=== PATIENT | female | born 1965 | race Two or more races ===

== ENCOUNTER 2019-09-09 13:42 | Inpatient (IN) | payer MEDICAID, OTHER ==
[~2019-09-09] VITALS: Ht 160 cm; Wt 113.3 kg
[2019-09-09 14:26] LABS: Urine Bacteria FEW /hpf (None Seen); Urine Blood Negative /uL (Negative); Urine Hyaline Cast FEW /lpf (0 - 2); Urine Mucus FEW (None Seen); Urine Specific Gravity 1.027 (1.001-1.035); Urine WBC 15 /hpf (0 - 5)
[2019-09-09 14:35] LABS: Basophils # (auto) 0 10 ^3/uL (0-0.2); Basophils % (auto) 0.4 % (0.0-2.0); Eosinophils # (auto) 0.1 10 ^3/uL (0-0.8); Hemoglobin 15.4 g/dL (12.2-16.2); Lymphocytes # (auto) 0.8 10 ^3/uL (0.4-5.4); Lymphocytes % (auto) 9.7 % (10.0-50.0); Mean Corpuscular Hemoglobin 31.2 pg (28.0-32.0); Mean Corpuscular Hgb Conc. 32.8 g/dL (32.0-36.0); Mean Corpuscular Volume 95.2 fL (80.0-100.0); Monocytes # (auto) 0.4 10 ^3/uL (0-1.3); Monocytes % (auto) 4.8 % (0.0-12.0); Neutrophils % (auto) 84.1 % (37.0-80.0); Nucleated Red Blood Cells % 0.1 %; Platelet Count (auto) 199 10^3/uL (140-450); Red Blood Cells 4.94 10^6/uL (4.0-5.20); Red Cell Distribution Width 15.1 % (11.8-14.3); White Blood Cell 8.4 10^3/uL (4.4-10.8)
[2019-09-09 14:51] LABS: INR 1.07 (0.9-1.15); Partial Thromboplastin Time 25.1 sec (23.64-32.05)
[2019-09-09 14:54] LABS: Amylase 29 U/L (25-115); Lipase 111 U/L (73-393)
[2019-09-09 14:56] LABS: Albumin 3.6 g/dL (3.4-5.0); Anion Gap 8 (5-15); Blood Urea Nitrogen 13 mg/dL (7-18); Calcium 8.5 mg/dL (8.5-10.1); Carbon Dioxide 25 mmol/L (21-32); Chloride 104 mmol/L (98-107); Glucose 176 mg/dL (74-106); Potassium 4.1 mmol/L (3.5-5.1); Sodium 137 mmol/L (136-145)
[2019-09-09 15:03] LABS: Alanine Aminotransferase 261 U/L (13-56); Alkaline Phosphatase 143 U/L (45-117); Aspartate Aminotransferase 386 U/L (15-37); Bilirubin, Total 1.2 mg/dL (0.2-1.0); GFR African American 94 mL/min; GFR Non-African American 78 mL/min; Total Protein 8.4 g/dL (6.4-8.2)
[2019-09-09] MEDS ORDERED: SODIUM CHLORIDE 0.9% 1,000 ML IV ONE (16:00)
[2019-09-09] MEDS ORDERED: cefTRIAXone 1GM/50ML D5W 50 ML IV ONE (16:00)
[2019-09-09] MEDS ORDERED: ALUM & MAG HYDROX-SIMETH LIQ(MAALOX) 30 ML PO PRN (20:30)
[2019-09-09] MEDS ORDERED: DOCUSATE SOD 100 MG CAP PO PRN (20:30)
[2019-09-09] MEDS ORDERED: NITROGLYCERIN 0.4 MG SL TAB SL PRN ×2 (20:30)
[2019-09-09] MEDS ORDERED: MORPHINE SULF INJ 2 MG/ML SYRINGE 1ML IV PRN ×2 (20:30)
[2019-09-09] MEDS: MORPHINE SULF INJ 2 MG/ML SYRINGE 1ML IV PRN (21:07)
[2019-09-09] MEDS: ONDANSETRON HCL 4 MG/2 ML VIAL IV PRN (21:07)
[2019-09-09 21:29] LABS: Alcohol, Urine < 3.0 mg/dL (0-10); Amphetamine Screen, Urine NEGATIVE (NEGATIVE); Barbiturate Scree,Urine NEGATIVE (NEGATIVE); Benzodiazephine Screen, Urine NEGATIVE (NEGATIVE); Cannabinoid Screen, Urine NEGATIVE (NEGATIVE); Cocaine Screen, Urine NEGATIVE (NEGATIVE); Opiate Scree,Urine NEGATIVE (NEGATIVE); Phencyclidine Screen, Urine NEGATIVE (NEGATIVE)
[2019-09-09 22:00] VITALS: BP 192/85
--- NOTE | 2019-09-09 22:00 | NUR ---
Telemetry admit from [facility] admitted to Telemetry unit after SBAR received. Patient oriented to Ruby Pollock RN primary RN, unit, room, bed, and unit policies regarding patient care and visiting hours. Patient now on continuous telemetry monitoring, tele box # [id number] and telemetry reading on arrival to unit is SR. Patient placed on bedside oxygen at 2 Lpm/NC, weighed by bedscale and encouraged to call if they need something. Instructed to be NPO. All questions and concerns addressed, patient verbalized understanding, will continue to monitor Note: []
[2019-09-09 22:34] LABS: Cholesterol 152 mg/dL (< 200)
[2019-09-09 22:37] LABS: HDL Cholesterol 35 mg/dL (40-59); LDL Cholesterol 99 mg/dL (< 100); Triglycerides 85 mg/dL (< 150)
[2019-09-09] MEDS: SODIUM CHLORIDE 0.9% 1,000 ML IV SCH (22:43)
[2019-09-09] MEDS: metroNIDAZOLE 500MG/100ML 100 ML IV SCH (22:43)
[2019-09-09 23:45] VITALS: BP 142/85
[2019-09-09 23:53] VITALS: BP 142/85
[2019-09-10] VITALS (7 sets, daily range): BP systolic 128–155; BP diastolic 62–80
--- NOTE | 2019-09-10 02:40 | NUR ---
ROUNDING Patient sleeping at this time, respirations even and unlabored, will continue to monitor
[2019-09-10] MEDS ORDERED: DEXTROSE (50%) 50ML SYRG IV PRN (03:30)
[2019-09-10 05:39] LABS: Basophils # (auto) 0 10 ^3/uL (0-0.2); Basophils % (auto) 0.1 % (0.0-2.0); Eosinophils # (auto) 0 10 ^3/uL (0-0.8); Hematocrit 47.5 % (36.0-46.0); Hemoglobin 15.3 g/dL (12.2-16.2); Lymphocytes # (auto) 0.4 10 ^3/uL (0.4-5.4); Lymphocytes % (auto) 2.7 % (10.0-50.0); Mean Corpuscular Hemoglobin 30.8 pg (28.0-32.0); Mean Corpuscular Hgb Conc. 32.3 g/dL (32.0-36.0); Mean Corpuscular Volume 95.2 fL (80.0-100.0); Monocytes # (auto) 0.6 10 ^3/uL (0-1.3); Monocytes % (auto) 3.8 % (0.0-12.0); Neutrophils # (auto) 14.9 10 ^3/uL (1.6-8.6); Neutrophils % (auto) 93.4 % (37.0-80.0); Platelet Count (auto) 184 10^3/uL (140-450); Red Blood Cells 4.99 10^6/uL (4.0-5.20); Red Cell Distribution Width 15.4 % (11.8-14.3); White Blood Cell 15.9 10^3/uL (4.4-10.8)
[2019-09-10 05:57] LABS: Albumin 3.4 g/dL (3.4-5.0); Magnesium 2.2 mg/dL (1.6-2.6); Potassium 4.5 mmol/L (3.5-5.1)
[2019-09-10 05:58] LABS: INR 1.21 (0.9-1.15); Partial Thromboplastin Time 27.6 sec (23.64-32.05)
[2019-09-10 06:03] LABS: BUN/Creatinine Ratio 11.2; Bilirubin, Total 3.8 mg/dL (0.2-1.0); Phosphorus 4.3 mg/dL (2.5-4.90)
[2019-09-10] MEDS: ACCU-CHEK COMFORT CURVE STRIP VI SCH ×4 (06:27→21:50)
[2019-09-10] MEDS: InsuLIN REG 1unit/0.01ml Soln (100units/ml) SC SCH ×4 (06:27→21:50)
[2019-09-10] MEDS: metroNIDAZOLE 500MG/100ML 100 ML IV SCH ×3 (06:28→21:06)
[2019-09-10] MEDS: SODIUM CHLORIDE 0.9% 1,000 ML IV SCH ×2 (06:31→18:36)
--- NOTE | 2019-09-10 07:30 | NUR ---
OPENING NOTE Assumed responsibility of patient at 0700. Patient is Indonesian speaking only, alert and oriented x 4 and able to make needs known. Respiratory sounds clear, unlabored and equal bilaterally. Patient verbalized that she is not having any pain at this time. Bed locked in lowest position, HOB elevated at least 30 degrees and call light within reach. Patient is on NPO status. Will continue to monitor.
[2019-09-10] MEDS: LISINOPRIL 10 MG TAB PO SCH (09:47)
[2019-09-10] MEDS: CEFTRIAXONE SODIUM 2 GM in D5W 5% 50 ML IV SCH (09:58)
[2019-09-10] MEDS ORDERED: ENOXAPARIN SOD 40 MG/0.4 ML SYRINGE SC SCH (10:00)
[2019-09-10] MEDS ORDERED: ASPirin 81 mg TAB PO SCH (10:00)
[2019-09-10] MEDS ORDERED: LORazepam 2MG/ML-1ML VIAL IV ONE (10:00)
--- NOTE | 2019-09-10 10:05 | NUR ---
PATIENT OUT TO MRI PROCEDURE. WILL ASSESS WITHIN 1 HOUR OF RETURN.
--- NOTE | 2019-09-10 10:30 | NUR ---
Patient returned from MRI with no changes in LOC.
--- NOTE | 2019-09-10 19:10 | NUR ---
OPENING SHIFT NOTE: ASSUMED CARE OF PATIENT. PATIENT IS ETHIOPIAN SPEAKING ONLY, ALERT AND ORIENTED X 4. NO S/S OF SOB OR DISTRESS, PATIENT COMPLAINS OF PAIN IN ABDOMEN, WILL MEDICATE FOR PAIN. BED IS IN LOWEST LOCKED POSITION WITH TWO SIDE RAILS RAISED AND CALL LIGHT WITHIN REACH. INSTRUCTED ON POC WITH ASSISTANCE OF SUPPORT MANAGER, ENCOURAGED TO USE CALL LIGHT FOR ASSISTANCE, ALL QUESTIONS AND CONCERNS ADDRESSED, PATIENT VERBALIZED UNDERSTANDING. WILL CONTINUE TO MONITOR Q1 HR AND PRN.
[2019-09-10] MEDS: MORPHINE SULF INJ 2 MG/ML SYRINGE 1ML IV PRN (21:06)
[2019-09-10] MEDS ORDERED: ATORVASTATIN 20 MG TAB PO SCH (22:00)
--- NOTE | 2019-09-10 22:00 | NUR ---
IV DISCONTINUED/INSERTED: RIGHT WRIST 20 G IV REMOVED, CATHETER TIP INTACT AND PRESSURE DRESSING APPLIED. NEW RIGHT FOREARM 22 G IV INSERTED USING CLEAN TECHNIQUE. PATIENT TOLERATED REMOVAL AND INSERTION OF IV'S WELL.
[2019-09-11] MEDS: MORPHINE SULF INJ 2 MG/ML SYRINGE 1ML IV PRN (02:19)
[2019-09-11] MEDS: SODIUM CHLORIDE 0.9% 1,000 ML IV SCH ×3 (02:39→21:41)
[2019-09-11 05:43] VITALS: BP 140/85
[2019-09-11] MEDS: metroNIDAZOLE 500MG/100ML 100 ML IV SCH ×3 (05:51→21:41)
[2019-09-11] MEDS: InsuLIN REG 1unit/0.01ml Soln (100units/ml) SC SCH ×4 (06:00→21:42)
[2019-09-11] MEDS: ACCU-CHEK COMFORT CURVE STRIP VI SCH ×4 (06:00→21:41)
--- NOTE | 2019-09-11 07:30 | NUR ---
RECEIVED REPORT FROM NIGHT NURSE. PATIENT RESTING IN BED, NO DISTRESS NOTED. WILL CONTINUE TO MONITOR.
[2019-09-11 08:22] LABS: Basophils # (auto) 0 10 ^3/uL (0-0.2); Basophils % (auto) 0.1 % (0.0-2.0); Eosinophils # (auto) 0.1 10 ^3/uL (0-0.8); Eosinophils % (auto) 0.9 % (0.0-7.0); Hematocrit 45.7 % (36.0-46.0); Hemoglobin 14.8 g/dL (12.2-16.2); Lymphocytes # (auto) 0.7 10 ^3/uL (0.4-5.4); Lymphocytes % (auto) 8.3 % (10.0-50.0); Mean Corpuscular Hemoglobin 31.2 pg (28.0-32.0); Mean Corpuscular Hgb Conc. 32.3 g/dL (32.0-36.0); Mean Corpuscular Volume 96.5 fL (80.0-100.0); Monocytes # (auto) 0.5 10 ^3/uL (0-1.3); Monocytes % (auto) 6.7 % (0.0-12.0); Neutrophils # (auto) 6.7 10 ^3/uL (1.6-8.6); Platelet Count (auto) 150 10^3/uL (140-450); Red Blood Cells 4.74 10^6/uL (4.0-5.20); Red Cell Distribution Width 15.3 % (11.8-14.3)
[2019-09-11 08:36] LABS: Albumin 2.9 g/dL (3.4-5.0); BUN/Creatinine Ratio 13.6
[2019-09-11 08:39] LABS: Bilirubin, Total 3.7 mg/dL (0.2-1.0); Total Protein 7.7 g/dL (6.4-8.2)
[2019-09-11 08:57] VITALS: BP 155/79
[2019-09-11] MEDS: CEFTRIAXONE SODIUM 2 GM in D5W 5% 50 ML IV SCH (10:02)
[2019-09-11] MEDS: LISINOPRIL 10 MG TAB PO SCH (10:02)
--- NOTE | 2019-09-11 11:30 | NUR ---
PATIENT REFUSING INSULIN ACCUCHECK 167
[2019-09-11] MEDS: HYDROcodone-ACET 5/325MG TAB PO PRN ×2 (11:33→20:25)
--- NOTE | 2019-09-11 12:24 | NUR ---
DOCTOR FUENTES AT BEDSIDE.
[2019-09-11] MEDS ORDERED: PHYTONADIONE(VitK) ORAL Susp 10mg/10ml(1mg/ml) PO ONE (12:30)
[2019-09-11 13:22] VITALS: BP 161/78
--- NOTE | 2019-09-11 17:00 | NUR ---
PATIENT REFUSING INSULIN ACCUCHECK 159
[2019-09-11 17:06] VITALS: BP 145/93
[2019-09-11 20:00] VITALS: BP 166/91
[2019-09-11 22:00] VITALS: BP 166/91
[2019-09-11] MEDS: ENALAPRILAT 1.25 MG/ML-1ML VIAL IV PRN (22:40)
[2019-09-12] MEDS: HYDROcodone-ACET 5/325MG TAB PO PRN ×2 (00:43→20:22)
[2019-09-12 05:00] VITALS: BP 163/79
[2019-09-12] MEDS: metroNIDAZOLE 500MG/100ML 100 ML IV SCH ×3 (05:34→21:36)
[2019-09-12 05:52] LABS: Basophils # (auto) 0 10 ^3/uL (0-0.2); Basophils % (auto) 0.1 % (0.0-2.0); Eosinophils # (auto) 0 10 ^3/uL (0-0.8); Hematocrit 40.2 % (36.0-46.0); Hemoglobin 12.7 g/dL (12.2-16.2); Lymphocytes # (auto) 0.9 10 ^3/uL (0.4-5.4); Lymphocytes % (auto) 5.5 % (10.0-50.0); Mean Corpuscular Hemoglobin 26.1 pg (28.0-32.0); Mean Corpuscular Hgb Conc. 31.6 g/dL (32.0-36.0); Mean Corpuscular Volume 82.5 fL (80.0-100.0); Monocytes # (auto) 1.3 10 ^3/uL (0-1.3); Monocytes % (auto) 8.2 % (0.0-12.0); Neutrophils # (auto) 13.9 10 ^3/uL (1.6-8.6); Neutrophils % (auto) 86.2 % (37.0-80.0); Nucleated Red Blood Cells % 0.1 %; Platelet Count (auto) 221 10^3/uL (140-450); Red Blood Cells 4.87 10^6/uL (4.0-5.20); White Blood Cell 16.2 10^3/uL (4.4-10.8)
[2019-09-12 06:03] LABS: INR 1.14 (0.9-1.15)
[2019-09-12] MEDS: InsuLIN REG 1unit/0.01ml Soln (100units/ml) SC SCH ×4 (07:00→21:43)
[2019-09-12] MEDS: ACCU-CHEK COMFORT CURVE STRIP VI SCH ×4 (07:00→21:36)
[2019-09-12] MEDS ORDERED: GABA300C10 PO (07:30)
[2019-09-12] MEDS ORDERED: LISI-648 PO (07:30)
[2019-09-12] MEDS ORDERED: NAP500T PO (07:30)
[2019-09-12] MEDS ORDERED: CHOL1TAB42 PO (07:30)
[2019-09-12] MEDS ORDERED: METF-370 PO (07:30)
[2019-09-12] MEDS ORDERED: IBUP600T27 PO (07:30)
--- NOTE | 2019-09-12 07:30 | NUR ---
RECEIVED REPORT FROM NIGHT NURSE. PATIENT RESTING IN BED, NO DISTRESS NOTED. WILL CONTINUE TO MONITOR.
[2019-09-12 08:34] LABS: BUN/Creatinine Ratio 15.1; Potassium 4.1 mmol/L (3.5-5.1)
[2019-09-12] MEDS: SODIUM CHLORIDE 0.9% 1,000 ML IV SCH ×2 (08:54→17:52)
--- NOTE | 2019-09-12 08:54 | NUR ---
DOCTOR FUENTES AT BEDSIDE.
[2019-09-12 09:00] VITALS: BP 162/88
[2019-09-12] MEDS: amLODIPine BESYLATE 5 MG TAB PO SCH (10:45)
[2019-09-12] MEDS: LISINOPRIL 10 MG TAB PO SCH (10:45)
[2019-09-12] MEDS: CEFTRIAXONE SODIUM 2 GM in D5W 5% 50 ML IV SCH (11:54)
[2019-09-12 13:00] VITALS: BP 191/96
[2019-09-12] MEDS: cloNIDine HCL 0.1 MG TAB PO PRN ×2 (13:15→21:38)
--- NOTE | 2019-09-12 14:01 | NUR ---
Nutrition Assessment Note please see attached link for complete assessment [employer] needs ABW 86 [id number] kcals (17-20 kcal/kgBW), Est Protein needs: 86-94 gms/day (1.0-1.1 gm/kgBW) Will continue to monitor and reassess prn. Addendum: 09/12/19 at [address] Amended: Links added.
[2019-09-12 17:00] VITALS: BP 162/88
[2019-09-12] MEDS: MORPHINE SULF INJ 2 MG/ML SYRINGE 1ML IV PRN ×2 (17:06→21:37)
[2019-09-12] MEDS: ONDANSETRON HCL 4 MG/2 ML VIAL IV PRN (20:23)
[2019-09-12 22:33] VITALS: BP 160/79
[2019-09-13] MEDS: HYDROcodone-ACET 5/325MG TAB PO PRN ×2 (00:27→23:34)
[2019-09-13] MEDS: LORazepam 0.5 MG TAB PO PRN ×2 (00:27→23:34)
[2019-09-13 05:17] VITALS: BP 133/57
[2019-09-13] MEDS: metroNIDAZOLE 500MG/100ML 100 ML IV SCH ×3 (06:06→20:59)
[2019-09-13] MEDS: ACCU-CHEK COMFORT CURVE STRIP VI SCH ×4 (06:06→21:00)
[2019-09-13] MEDS: SODIUM CHLORIDE 0.9% 1,000 ML IV SCH ×2 (06:18→14:20)
[2019-09-13] MEDS: InsuLIN REG 1unit/0.01ml Soln (100units/ml) SC SCH ×4 (06:25→21:16)
[2019-09-13 07:11] LABS: Basophils # (auto) 0 10 ^3/uL (0-0.2); Basophils % (auto) 0.4 % (0.0-2.0); Eosinophils # (auto) 0 10 ^3/uL (0-0.8); Eosinophils % (auto) 0.3 % (0.0-7.0); Hematocrit 44.4 % (36.0-46.0); Hemoglobin 14.3 g/dL (12.2-16.2); Lymphocytes # (auto) 0.6 10 ^3/uL (0.4-5.4); Mean Corpuscular Hemoglobin 30.8 pg (28.0-32.0); Mean Corpuscular Hgb Conc. 32.3 g/dL (32.0-36.0); Mean Corpuscular Volume 95.5 fL (80.0-100.0); Monocytes # (auto) 0.4 10 ^3/uL (0-1.3); Monocytes % (auto) 7.4 % (0.0-12.0); Neutrophils # (auto) 4.6 10 ^3/uL (1.6-8.6); Neutrophils % (auto) 81.9 % (37.0-80.0); Platelet Count (auto) 169 10^3/uL (140-450); Red Blood Cells 4.65 10^6/uL (4.0-5.20); Red Cell Distribution Width 15.6 % (11.8-14.3); White Blood Cell 5.6 10^3/uL (4.4-10.8)
[2019-09-13 07:34] LABS: Calcium 8.1 mg/dL (8.5-10.1); Potassium 3.8 mmol/L (3.5-5.1)
--- NOTE | 2019-09-13 08:00 | NUR ---
Morning note Patient resting in bed with even and unlabored respirations, no distress noted. Instructed patient through translation on POC, fall precautions and to call for assistance as needed. patient verbalized understanding. Fall precautions in place with call light within reach.
[2019-09-13 09:00] VITALS: BP 141/77
[2019-09-13] MEDS: amLODIPine BESYLATE 5 MG TAB PO SCH (10:39)
[2019-09-13] MEDS: LISINOPRIL 10 MG TAB PO SCH (10:40)
[2019-09-13] MEDS: CEFTRIAXONE SODIUM 2 GM in D5W 5% 50 ML IV SCH (11:15)
[2019-09-13 13:00] VITALS: BP 155/80
[2019-09-13 17:00] VITALS: BP 158/81
[2019-09-13] MEDS: MORPHINE SULF INJ 2 MG/ML SYRINGE 1ML IV PRN (17:44)
--- NOTE | 2019-09-13 18:51 | NUR ---
Closing note Patient resting in bed with even and unlabored respirations; eyes closed, no distress noted. Fall precautions in place with call light within reach.
--- NOTE | 2019-09-13 19:01 | NUR ---
Care endorsed to PARRISH David.
[2019-09-13 22:00] VITALS: BP_SYST 145; BP_SYST 162; BP_DIAS 73; BP_DIAS 84
--- NOTE | 2019-09-13 22:00 | NUR ---
PATIENT EDUCATION PATIENT EDUCATION GIVEN TO PATIENT REGARDING ERCP PRINTED IN ENGLISH. PATIENT HAS NO QUESTIONS AT THIS TIME. WILL CONTINUE TO MONITOR PATIENT.
[2019-09-14] VITALS (8 sets, daily range): BP systolic 137–166; BP diastolic 69–95
[2019-09-14] MEDS: SODIUM CHLORIDE 0.9% 1,000 ML IV SCH ×2 (00:20→10:20)
[2019-09-14] MEDS: ENALAPRILAT 1.25 MG/ML-1ML VIAL IV PRN ×2 (04:08→12:31)
[2019-09-14] MEDS: metroNIDAZOLE 500MG/100ML 100 ML IV SCH ×3 (05:40→22:46)
[2019-09-14] MEDS: ACCU-CHEK COMFORT CURVE STRIP VI SCH ×4 (06:18→22:46)
[2019-09-14] MEDS: InsuLIN REG 1unit/0.01ml Soln (100units/ml) SC SCH ×4 (06:18→22:48)
[2019-09-14 06:31] LABS: Basophils # (auto) 0 10 ^3/uL (0-0.2); Basophils % (auto) 0.5 % (0.0-2.0); Eosinophils # (auto) 0 10 ^3/uL (0-0.8); Eosinophils % (auto) 0.8 % (0.0-7.0); Hematocrit 44.4 % (36.0-46.0); Hemoglobin 14.6 g/dL (12.2-16.2); Lymphocytes # (auto) 0.9 10 ^3/uL (0.4-5.4); Lymphocytes % (auto) 13.9 % (10.0-50.0); Mean Corpuscular Hemoglobin 31.3 pg (28.0-32.0); Mean Corpuscular Hgb Conc. 32.8 g/dL (32.0-36.0); Mean Corpuscular Volume 95.3 fL (80.0-100.0); Monocytes # (auto) 0.5 10 ^3/uL (0-1.3); Monocytes % (auto) 7.7 % (0.0-12.0); Neutrophils # (auto) 4.8 10 ^3/uL (1.6-8.6); Neutrophils % (auto) 77.1 % (37.0-80.0); Nucleated Red Blood Cells % 0.1 %; Platelet Count (auto) 169 10^3/uL (140-450); Red Blood Cells 4.66 10^6/uL (4.0-5.20); Red Cell Distribution Width 16.1 % (11.8-14.3); White Blood Cell 6.2 10^3/uL (4.4-10.8)
[2019-09-14 06:45] LABS: Potassium 3.7 mmol/L (3.5-5.1)
[2019-09-14 06:51] LABS: Albumin 2.6 g/dL (3.4-5.0); BUN/Creatinine Ratio 11.1; Bilirubin, Total 5.7 mg/dL (0.2-1.0); Calcium 8.4 mg/dL (8.5-10.1); Total Protein 7.8 g/dL (6.4-8.2)
--- NOTE | 2019-09-14 09:01 | NUR ---
MORNING NOTE ASSUMED CARE OF PATIENT. PATIENT RESTING WITH EYES CLOSED, NO SIGNS OF DISTRESS, BREATHING EVEN AND NONLABORED. BED IN LOWEST POSITION, CALL LIGHT IN PLACE. Signed: 09/14/19 at 905 by Shaina ESCOBAR <Co-Signature Required> Co-Signed: 09/14/19 at 905 by Beth Naqvi RN
[2019-09-14] MEDS: CEFTRIAXONE SODIUM 2 GM in D5W 5% 50 ML IV SCH (09:14)
[2019-09-14] MEDS: LISINOPRIL 10 MG TAB PO SCH (09:17)
[2019-09-14] MEDS: amLODIPine BESYLATE 5 MG TAB PO SCH (09:18)
--- NOTE | 2019-09-14 10:12 | NUR ---
was at bedside - Dr. Stover
[2019-09-14] MEDS ORDERED: amLODIPine BESYLATE 5 MG TAB PO ONE (10:30)
[2019-09-14] MEDS: cloNIDine HCL 0.1 MG TAB PO PRN (12:26)
--- NOTE | 2019-09-14 12:27 | NUR ---
RE: Intervention patient resting in bed with eyes closed, respirations even and unlabored, snoring noted. Addendum: 09/14/19 at 1835 by Beth Naqvi RN Amended: Links added.
--- NOTE | 2019-09-14 12:32 | NUR ---
RE: ENALAPRIL MEDICATION HELD DUE TO PT NOT ON SURGICAL TERRITORY MANAGER. Signed: 09/14/19 at 1233 by Shaina ESCOBAR <Co-Signature Required> Co-Signed: 09/14/19 at 1233 by Beth Naqvi RN
--- NOTE | 2019-09-14 12:35 | NUR ---
Pagebrandyn GOODMAN to notify of elevated BP/Enalapril held Paged Dr. Stover to notify of elevated BP and that Enalapril was held due to patient not on risk adjustment specialist. Addendum: 09/14/19 at 1335 by Beth Naqvi RN Notified Dr. Stover. Order received and read back to verbalize.
[2019-09-14] MEDS ORDERED: ENALAPRILAT 1.25 MG/ML-1ML VIAL IV PRN (13:45)
--- NOTE | 2019-09-14 14:19 | NUR ---
PT TRANSFERRED TO PREOP PT TAKEN TO PREOP VIA HOSPITAL BED FOR ERCP. VS STABLE, RESPIRATIONS NORMAL AND UNLABORED. IV INTACT, SALINE FLUSHED. NO S/S OF DISTRESS Signed: 09/14/19 at 1423 by Shaina ESCOBAR <Co-Signature Required> Co-Signed: 09/14/19 at 1423 by Beth Naqvi RN
[2019-09-14] MEDS ORDERED: LIDOCAINE 1% HCL (LOCAL ANESTH.) INJ 20ML MDV ONE (14:38)
[2019-09-14] MEDS ORDERED: SUCCINYLCHOLINE CHLORIDE 20 MG/ML 10ML VIAL IV ONE (14:38)
[2019-09-14] MEDS ORDERED: IOHEXOL 300 MG/ML 100ML BOTTLE IJ ONE (14:38)
[2019-09-14] MEDS ORDERED: fentaNYL CITRATE 100 MCG/2 ML VL IV PRN (15:00)
[2019-09-14] MEDS ORDERED: ONDANSETRON HCL 4 MG/2 ML VIAL IV PRN (15:00)
[2019-09-14] MEDS ORDERED: HYDROmorphone HCL 2 MG/ML VL IV PRN (15:00)
[2019-09-14] MEDS ORDERED: ACCU-CHEK COMFORT CURVE STRIP VI ONE (15:00)
[2019-09-14] MEDS ORDERED: MORPHINE SULFATE 4 MG/ML SYR/VIAL IV PRN (15:00)
[2019-09-14] MEDS ORDERED: SODIUM CHLORIDE LOCK 10 ML ONE (15:02)
[2019-09-14] MEDS ORDERED: MIDAZOLAM HCL 1MG/1ML-2 ML VIAL ONE (15:02)
[2019-09-14] MEDS ORDERED: ONDANSETRON HCL 4 MG/2 ML VIAL ONE (15:02)
[2019-09-14] MEDS ORDERED: PROPOFOL 10 MG/ML 20 ML IV ONE (15:02)
[2019-09-14] MEDS ORDERED: fentaNYL CITRATE 100 MCG/2 ML VL ONE (15:02)
[2019-09-14] MEDS ORDERED: ROCURONIUM 10MG/ML 10ML VIAL IV ONE (15:02)
--- NOTE | 2019-09-14 15:04 | NUR ---
Nutrition Followup Note Wt 118.2 kg Pt NPO 09/13 d/t scheduled for ERCP. Pt intake prior to NPO diet order was adequate aeb pt with 92% avg po intake x 3 days per RN nutrition doc. Will monitor po intake following NPO order. Est Energy needs ABW 86 [id number] kcals (17-20 kcal/kgBW), Est Protein needs: 86-94 gms/day (1.0-1.1 gm/kgBW) Will continue to monitor and reassess prn. Labs: AST 102H, ALT 132H, ALK PHOS 259H, GLUC 138H, Ca 8.4L, Alb 2.6L BM: 2 09/12 per RN doc Skin: BS 20 low risk, full details in director of career resources doc. PES Decreased nutrient needs r.t adiposity aeb pt`s high BMI of 46.9 kgm2 Altered nutrition related lab values r/t current medical condition aeb elev creat a1c hypocalcmeia Comments 1) Continue to monitor po intake, labs, skin 2) refer to CDE on DC 3) continue current plan of care Expected Outcomes/Goals: pt will have improved labs pt will not gain any more wt F/u mod 3-5 days
--- NOTE | 2019-09-14 16:27 | NUR ---
RE: intervention patient off unit at scheduled procedure. Addendum: 09/14/19 at 1836 by Beth Naqvi RN Amended: Links added.
[2019-09-14] MEDS ORDERED: SOD CHL 0.45% 1,000 ML IV ONE (16:30)
--- NOTE | 2019-09-14 16:45 | NUR ---
PATIENT NOT IN HER ROOM, SHES ON A PROCEDURE.
--- NOTE | 2019-09-14 18:18 | NUR ---
Respiratory note: PT EXTUBATED AT THIS TIME ORDERED BY DR. GRAFF. PLACED ON 5L N/C, SPO2 92%, HR 80, RR 17. BREATH SOUNDS CLEAR/DIMINISHED THROUGHOUT, NO STRIDOR NOTED. PT IS TO GO ON BIPAP/CPAP FOR THE NOC ONCE UPSTAIRS AND READY FOR BED. WILL CONTINUE WITH CARE.
--- NOTE | 2019-09-14 18:49 | NUR ---
CLOSING NOTE PT RETURNED FROM HER PROCEDURE AT 184. PT RESTING WITH EYES CLOSED. VS STABLE WITH RESPIRATIONS NORMAL AND NON LABORED. PT IS ON 4 L NC. NO S/S OF DISTRESS. BED DOWN, CALL LIGHT IN PLACE. BED ALARM ON FOR SAFETY. Signed: 09/14/19 at 1854 by Shaina ESCOBAR <Co-Signature Required> Co-Signed: 09/14/19 at 1854 by Beth Naqvi RN
--- NOTE | 2019-09-14 19:26 | NUR ---
Care endorsed to PARRISH Barron. Patient resting in bed with even and unlabored 4 LPM NC, no distress noted. Fall precautions in place with call light within reach; bed alarm on for safety.
--- NOTE | 2019-09-14 19:30 | NUR ---
Opening Shift Note Assumed care of patient drowsy, but easily arouseable. Patient on O2 at 5 LPM nasal cannula, on continuous pulse oximeter, saturation at 90-92%. Instructed on POC and to call for assist PRN, will continue to monitor for changes Q1hr and PRN.
[2019-09-15] VITALS (7 sets, daily range): BP systolic 135–163; BP diastolic 68–86
--- NOTE | 2019-09-15 | NUR ---
Patient on BIPAP, discontinued so patient can go to the toilet and void. Patient has a steady gait and was able to void freely. Patient put back on BIPAP by RT. All needs attended to. Care continued.
--- NOTE | 2019-09-15 02:35 | NUR ---
Respiratory note: BIPAP CHECKED, NO CHANGES MADE. PT NOTED TO HAVE PERIODS OF DESATURATIONS DOWN TO 75%, GOOD WAVEFORM. PTS SATS DECREASE, THEN IMMEDIATELY INCREASE BACK TO 91-96%.
--- NOTE | 2019-09-15 04:34 | NUR ---
Respiratory note: BIPAP CHECKED. PT NOTED TO HAVE PERIODS OF DESATURATIONS, 82% LOWEST OBSERVED AT THIS TIME. INCREASED FIO2 TO 45%. PT APPEARS TO BE SLEEPING COMFORTABLY.
[2019-09-15] MEDS: metroNIDAZOLE 500MG/100ML 100 ML IV SCH ×3 (05:45→22:00)
--- NOTE | 2019-09-15 05:46 | NUR ---
Patient ambulated to the toilet, voided freely. Care continued.
[2019-09-15 06:02] LABS: Basophils # (auto) 0.1 10 ^3/uL (0-0.2); Basophils % (auto) 0.8 % (0.0-2.0); Eosinophils # (auto) 0.1 10 ^3/uL (0-0.8); Hematocrit 42.3 % (36.0-46.0); Hemoglobin 14.1 g/dL (12.2-16.2); Lymphocytes % (auto) 11.6 % (10.0-50.0); Mean Corpuscular Hemoglobin 31.2 pg (28.0-32.0); Mean Corpuscular Hgb Conc. 33.3 g/dL (32.0-36.0); Mean Corpuscular Volume 93.9 fL (80.0-100.0); Monocytes # (auto) 0.5 10 ^3/uL (0-1.3); Monocytes % (auto) 6.2 % (0.0-12.0); Neutrophils % (auto) 80.4 % (37.0-80.0); Nucleated Red Blood Cells % 0.1 %; Platelet Count (auto) 190 10^3/uL (140-450); Red Blood Cells 4.51 10^6/uL (4.0-5.20); Red Cell Distribution Width 16.1 % (11.8-14.3); White Blood Cell 8.7 10^3/uL (4.4-10.8)
[2019-09-15 06:22] LABS: Potassium 3.4 mmol/L (3.5-5.1)
[2019-09-15] MEDS: ACCU-CHEK COMFORT CURVE STRIP VI SCH ×4 (06:34→22:00)
[2019-09-15] MEDS: InsuLIN REG 1unit/0.01ml Soln (100units/ml) SC SCH ×4 (06:34→22:00)
[2019-09-15 06:35] LABS: Albumin 2.5 g/dL (3.4-5.0); BUN/Creatinine Ratio 13.5; Bilirubin, Total 3.2 mg/dL (0.2-1.0); Calcium 8.1 mg/dL (8.5-10.1); Total Protein 7.2 g/dL (6.4-8.2)
--- NOTE | 2019-09-15 07:30 | NUR ---
Opening Shift Note Assumed care of patient, awake and alert. No S/S of distress/SOB or pain. Bed is low, locked with 2x side rails up. Call light is within reach. Instructed on POC and to call for assist PRN, will continue to monitor for changes Q1hr and PRN.
[2019-09-15] MEDS: CEFTRIAXONE SODIUM 2 GM in D5W 5% 50 ML IV SCH (09:39)
[2019-09-15] MEDS: LISINOPRIL 10 MG TAB PO SCH (09:39)
[2019-09-15] MEDS: amLODIPine BESYLATE 5 MG TAB PO SCH (09:40)
[2019-09-15] MEDS ORDERED: POTASSIUM CHL 20 Meq TABLET PO ONE (10:30)
[2019-09-15] MEDS: SOD CHL 0.45% WITH 20MEQ KCL 1,000 ML IV SCH ×2 (15:06→23:50)
[2019-09-15] MEDS: HYDROcodone-ACET 5/325MG TAB PO PRN (22:07)
--- NOTE | 2019-09-15 22:10 | NUR ---
Respiratory note: I WENT IN TO PATIENT ROOM TO ASK IF PT WAS READY TO GO ON BIPAP. PATIENT WAS COMFORTABLY RESTING, NO RESP DISTRESS NOTED. HR 64, RR 16, SPO2 97%ON 4L N/C. PT IS NAURUAN SPEAKING, SHE STATED THAT SHE DID NOT WANT TO WEAR BIPAP BECAUSE IT MAKES HER FEEL UNCOMFORTABLE AND SHE IS NOT USED TO IT. RN WAS AT BEDSIDE AND AWARE.
[2019-09-16] VITALS (21 sets, daily range): BP systolic 99–200; BP diastolic 47–86
--- NOTE | 2019-09-16 01:00 | NUR ---
NEW IV SITE IN LEFT UPPER DELTOID STARTED BECAUSE PT SAID SHE "DIDNT LIKE THE OTHER ONE". 20 GAUGE WITH EXCELLENT FLASH;IV NOW INFUSING PER ORDER;PT DENIES PAIN AND STATES THAT THE NEW SITE FEELS MORE COMFORTABLE.
[2019-09-16] MEDS: metroNIDAZOLE 500MG/100ML 100 ML IV SCH ×3 (06:18→21:46)
[2019-09-16 06:29] LABS: Basophils # (auto) 0.1 10 ^3/uL (0-0.2); Basophils % (auto) 0.8 % (0.0-2.0); Eosinophils # (auto) 0.2 10 ^3/uL (0-0.8); Hematocrit 42.8 % (36.0-46.0); Hemoglobin 14.1 g/dL (12.2-16.2); Lymphocytes % (auto) 11.2 % (10.0-50.0); Mean Corpuscular Hemoglobin 31.4 pg (28.0-32.0); Mean Corpuscular Hgb Conc. 33.1 g/dL (32.0-36.0); Monocytes # (auto) 0.5 10 ^3/uL (0-1.3); Monocytes % (auto) 5.7 % (0.0-12.0); Neutrophils # (auto) 7.1 10 ^3/uL (1.6-8.6); Neutrophils % (auto) 80.3 % (37.0-80.0); Nucleated Red Blood Cells % 0.1 %; Platelet Count (auto) 202 10^3/uL (140-450); Red Cell Distribution Width 16.2 % (11.8-14.3); White Blood Cell 8.9 10^3/uL (4.4-10.8)
[2019-09-16 06:50] LABS: Albumin 2.8 g/dL (3.4-5.0); Calcium 8.6 mg/dL (8.5-10.1); Potassium 3.6 mmol/L (3.5-5.1)
[2019-09-16] MEDS: ACCU-CHEK COMFORT CURVE STRIP VI SCH ×3 (06:55→17:43)
[2019-09-16] MEDS: InsuLIN REG 1unit/0.01ml Soln (100units/ml) SC SCH ×3 (06:55→17:43)
--- NOTE | 2019-09-16 06:55 | NUR ---
PT WANTING ANOTHER IV BECAUSE SHE LIKES TO LAY ON HER LEFT SIDE AND THE LEFT DELTOID IV IS NOT ALLOWING THAT. PT DENIES ANY PAIN WITH THE IV SITE. PT'S BLOOD SUGAR WAS 131 WITH NO COVERAGE BECAUSE THE PT IS NPO.
[2019-09-16 07:06] LABS: BUN/Creatinine Ratio 12.5; Bilirubin, Total 2.4 mg/dL (0.2-1.0); Total Protein 7.9 g/dL (6.4-8.2)
[2019-09-16] MEDS: cloNIDine HCL 0.1 MG TAB PO PRN (08:24)
[2019-09-16] MEDS: amLODIPine BESYLATE 5 MG TAB PO SCH (10:00)
[2019-09-16] MEDS: LISINOPRIL 10 MG TAB PO SCH (10:00)
[2019-09-16] MEDS: CEFTRIAXONE SODIUM 2 GM in D5W 5% 50 ML IV SCH (10:32)
--- NOTE | 2019-09-16 11:16 | NUR ---
Patient off unit Patient taken down to pre-op for scheduled surgery with Dr. Garza. IV to left upper arm is patent and intact. No distress noted upon departure.
--- NOTE | 2019-09-16 12:30 | NUR ---
Unable to obtain noon vitals . Pt is downstairs in OR at this time .
[2019-09-16] MEDS: SOD CHL 0.45% WITH 20MEQ KCL 1,000 ML IV SCH (13:10)
[2019-09-16] MEDS ORDERED: ceFAZolin 1GM/50ML 50 ML IV ONE (13:16)
[2019-09-16] MEDS ORDERED: LIDOCAINE 1% (LOCAL ANESTH.) PF 5ml SDV ONE (13:16)
[2019-09-16] MEDS ORDERED: SUCCINYLCHOLINE CHLORIDE 20 MG/ML 10ML VIAL IV ONE (13:16)
[2019-09-16] MEDS ORDERED: MIDAZOLAM HCL 1MG/1ML-2 ML VIAL ONE ×2 (13:19→16:06)
[2019-09-16] MEDS ORDERED: ROCURONIUM 10MG/ML 10ML VIAL IV ONE (13:19)
[2019-09-16] MEDS ORDERED: METOCLOPRAMIDE HCL 5MG/ml INJ 2ml VIAL ONE (13:22)
[2019-09-16] MEDS ORDERED: PROPOFOL 10 MG/ML 20 ML IV ONE (13:23)
[2019-09-16] MEDS ORDERED: fentaNYL CITRATE 100 MCG/2 ML VL ONE (13:50)
[2019-09-16] MEDS ORDERED: ePHEDrine SULFATE 50 MG/ML AMP ONE (14:06)
[2019-09-16] MEDS ORDERED: STERILE WATER 10 ML ONE (14:06)
--- NOTE | 2019-09-16 14:21 | NUR ---
Nutrition Followup Note Wt 120.5 kg Pt`s s/p ERCP, NPO to for lap shar. Est Energy needs ABW 86 [id number] kcals (17-20 kcal/kgBW), Est Protein needs: 86-94 gms/day (1.0-1.1 gm/kgBW) Will continue to monitor and reassess prn. Labs: GLU 116 H, FERMÍN 2.4 L, ALB 2.8 L, CO2 33 H BM: 2 09/12 per RN doc Skin: BS 20 low risk, full details in home health care coordinator doc. PES Decreased nutrient needs r.t adiposity aeb pt`s high BMI of 46.9 kgm2 Altered nutrition related lab values r/t current medical condition aeb elev creat a1c hypocalcemia Comments: 1) Continue to monitor po intake, labs, skin. 2) refer to CDE on DC. 3) Advance diet as medically feasible. 4) continue current plan of care
--- NOTE | 2019-09-16 15:06 | NUR ---
assessment Patient not in room. Patient is down for procedure. Ill try again in the morning. Addendum: 09/16/19 at 1506 by Elly MEANS Amended: Links added.
[2019-09-16] MEDS ORDERED: ALBUMIN 25% 50 ML IV ONE (15:17)
--- NOTE | 2019-09-16 15:39 | NUR ---
Report Called ICU and gave report to PARRISH Dior. All questions answered.
--- NOTE | 2019-09-16 16:10 | NUR ---
RECEIVED FROM OR Patient received from OR. Blood started by self upon patients arrival.
[2019-09-16] MEDS ORDERED: MIDAZOLAM DRIP 50 mg/50mL 50 ML IV ONE (16:23)
[2019-09-16] MEDS ORDERED: MIDAZOLAM DRIP 50 mg/50mL 50 ML IV SCH ×2 (16:23→17:06)
[2019-09-16] MEDS ORDERED: HYDROmorphone HCL 2 MG/ML VL IV PRN (16:30)
[2019-09-16] MEDS ORDERED: ONDANSETRON HCL 4 MG/2 ML VIAL IV PRN (16:30)
[2019-09-16] MEDS ORDERED: MIDAZOLAM HCL 1MG/1ML-2 ML VIAL IV PRN ×2 (16:30→17:00)
[2019-09-16] MEDS ORDERED: ACCU-CHEK COMFORT CURVE STRIP VI ONE (16:30)
[2019-09-16] MEDS: SODIUM CHLORIDE 0.9% 1,000 ML IV SCH (16:45)
--- NOTE | 2019-09-16 16:48 | NUR ---
BEDSIDE Dr. Jolanta turcios.
--- NOTE | 2019-09-16 17:00 | NUR ---
PAGED FAMILY In need to have consent signed for picc line, family did not answer.
--- NOTE | 2019-09-16 17:05 | NUR ---
IV INSERTED IV access obtained, via clean sterile technique by inserting 22 gauge catheter at left foot. IV secured properly. No trauma to site. Patient tolerated well.
[2019-09-16] MEDS ORDERED: fentaNYL Drip 2500mCg/250mlNS 250 ML IV SCH (17:06)
--- NOTE | 2019-09-16 17:14 | NUR ---
CPAP TRIAL STOPPED
--- NOTE | 2019-09-16 17:14 | NUR ---
MD BEDSIDE Dr. Stover signing PICC LINE consent and having second MD sign.
[2019-09-16] MEDS ORDERED: PANTOPRAZOLE 40 MG/10 ML VIAL INJ IV ONE (17:15)
[2019-09-16] MEDS ORDERED: LABETALOL HCL 5 MG/ML 4ML SYRINGE IV PRN (17:15)
[2019-09-16] MEDS ORDERED: DEXTROSE (50%) 50ML SYRG IV PRN (17:15)
--- NOTE | 2019-09-16 17:15 | NUR ---
IV INSERTED IV access obtained, via clean sterile technique by inserting 22 gauge catheter at right chest. IV secured properly. No trauma to site. Patient tolerated well.
--- NOTE | 2019-09-16 17:15 | NUR ---
SEDATON STARTED Per tripp Mckeon to start patient on Versed at 10 and start fentanyl.
--- NOTE | 2019-09-16 17:28 | NUR ---
RT NOTE: SPUTUM SAMPLE SENT TO LAB.
[2019-09-16] MEDS ORDERED: fentaNYL Drip 2500mCg/250mlNS 250 ML IV ONE (17:30)
--- NOTE | 2019-09-16 18:00 | NUR ---
CELSO OUTPUT 75
--- NOTE | 2019-09-16 18:13 | NUR ---
Respiratory note: ABG DONE POST VENT SETTING CHANGES. ABG RESULTS REPORTED TO DR. KEMP, NO VENT CHANGES MADE AT THIS TIME. PT TOLERATING SETTINGS WELL, WILL CONTINUE TO MONITOR.
--- NOTE | 2019-09-16 18:15 | NUR ---
FIO2 TITRATED TO 35%, PT TOLERATING WELL.
--- NOTE | 2019-09-16 18:45 | NUR ---
PICC LINE NURSE BEDSIDE
--- NOTE | 2019-09-16 19:30 | NUR ---
Opening shift note received pt on mechanical ventilator sedated on versed and fentanyl. Pt opens eyes to name but closes right away, no movement of extremities noted. S/P CHOLEY with abdominal incisions and dressing. minimal bleeding noted to abdominal dressing, drainage circled. CELSO draining sanguinous fluid. A line to right radial, zeroed with good wave form. Bilateral mittens applied for pt safety. Fair catheter intact draining clear venus urine to gravity, free of kinks. PICC line nurse at bedside placing PICC to KRIS. Full assessment done, see interventions. All alarms on and audible.
[2019-09-16] MEDS ORDERED: LIDOCAINE 1% (LOCAL ANESTH.) PF 5ml SDV ID ONE (20:00)
--- NOTE | 2019-09-16 20:11 | NUR ---
PICC line placement Patient significant other educated on need for PICC line placement. All risks and benefits explained and all questions and concerns addressed prior to procedure. Noted past medical history and allergies with no contraindications. INR and Plt counts within acceptable range. 5 fr PICC line inserted via RIGHT BRACHIAL vein using [employer] US and Tip Location System. Sterile technique with maximum barrier precautions utilized. Blood return obtained from each of THE 3 lumens and each flushed easily with NS using proper technique. PICC secured with Stat-lock; biodisc and occlusive dressing applied. Stat portable chest x-ray obtained for PICC tip placement. *Baseline Arm Circumference 43 CM, INTERNAL LENGTH 40 COM, EXTERNAL LENGTH 0CM. PICC lot # [id number]. Note:
--- NOTE | 2019-09-16 20:37 | NUR ---
OK to use PICC line Xray completed. OK TO USE PICC LINE. PRIMARY RN NOTIFIED
[2019-09-16 21:10] LABS: Basophils # (auto) 0.1 10 ^3/uL (0-0.2); Basophils % (auto) 0.5 % (0.0-2.0); Eosinophils # (auto) 0 10 ^3/uL (0-0.8); Eosinophils % (auto) 0.1 % (0.0-7.0); Hematocrit 38.1 % (36.0-46.0); Hemoglobin 12.4 g/dL (12.2-16.2); Lymphocytes # (auto) 0.9 10 ^3/uL (0.4-5.4); Lymphocytes % (auto) 6.5 % (10.0-50.0); Mean Corpuscular Hemoglobin 30.6 pg (28.0-32.0); Mean Corpuscular Hgb Conc. 32.6 g/dL (32.0-36.0); Monocytes # (auto) 0.6 10 ^3/uL (0-1.3); Monocytes % (auto) 4.4 % (0.0-12.0); Neutrophils # (auto) 12.2 10 ^3/uL (1.6-8.6); Neutrophils % (auto) 88.5 % (37.0-80.0); Nucleated Red Blood Cells % 0.1 %; Platelet Count (auto) 213 10^3/uL (140-450); Red Blood Cells 4.05 10^6/uL (4.0-5.20); Red Cell Distribution Width 16.1 % (11.8-14.3); White Blood Cell 13.8 10^3/uL (4.4-10.8)
[2019-09-16 21:30] LABS: BUN/Creatinine Ratio 17.9; Calcium 7.9 mg/dL (8.5-10.1); Potassium 3.9 mmol/L (3.5-5.1)
[2019-09-16] MEDS: SODIUM CHLOR 0.9% PF (SALINE LOCK) 10ML VIAL/SYR IV SCH (22:00)
[2019-09-17] VITALS (24 sets, daily range): BP systolic 102–160; BP diastolic 47–92
--- NOTE | 2019-09-17 03:00 | NUR ---
Respiratory note: AT BEDSIDE DUE TO VENT ALARMING, PT SELF EXTUBATED. SPO2 NOTED AT 84%. PT BAGGED WITH 100% FIO2, SPO2 IMPROVED TO 94%, SILVER DESIGNER HINOJOSA AT BEDSIDE. PT PLACED ON EPINEPHRINE MED NEB TX FOR STRIDOR. PT TOLERATING TREATMENT WELL. PT FOLLOWING COMMANDS, NO RESPIRATORY DISTRESS NOTED. BIPAP PLACED AT BEDSIDE. WILL CONTINUE TO MONITOR.
--- NOTE | 2019-09-17 03:00 | NUR ---
Self extubation Ventilator alarming, pt had pulled ET tube out. RT at bedside bagging pt. Pt awake and follows commands but lethargic. SPO2 at 95%. Stridor auscultated. Glycemic EPI MED NEB given by RT. NORMA loza at bedside assessing pt. Sedation turned off. Will continue to monitor closely. BIPAP at bedside.
[2019-09-17] MEDS ORDERED: EPINEPHrine HCL 0.5 ML NEB ONE (03:04)
[2019-09-17] MEDS ORDERED: EPINEPHrine HCL 0.5 ML NEB NEB ONE (03:15)
--- NOTE | 2019-09-17 04:30 | NUR ---
Pt on BIPAP. VSS. Respirations even and unlabored. Pt has stridor. saturations are 98%. Pt nodded head yes to pain. Will medicate. See emar. Will continue to monitor closely
[2019-09-17] MEDS: SODIUM CHLORIDE 0.9% 1,000 ML IV SCH ×3 (06:07→22:45)
[2019-09-17] MEDS: metroNIDAZOLE 500MG/100ML 100 ML IV SCH ×3 (06:07→21:26)
[2019-09-17] MEDS: ACCU-CHEK COMFORT CURVE STRIP VI SCH ×4 (06:28→17:48)
[2019-09-17] MEDS: InsuLIN REG 1unit/0.01ml Soln (100units/ml) SC SCH ×4 (06:28→17:49)
[2019-09-17 07:29] LABS: Basophils # (auto) 0.1 10 ^3/uL (0-0.2); Basophils % (auto) 0.7 % (0.0-2.0); Eosinophils # (auto) 0 10 ^3/uL (0-0.8); Eosinophils % (auto) 0.1 % (0.0-7.0); Hematocrit 37.1 % (36.0-46.0); Hemoglobin 11.9 g/dL (12.2-16.2); Lymphocytes # (auto) 1.9 10 ^3/uL (0.4-5.4); Lymphocytes % (auto) 14.3 % (10.0-50.0); Mean Corpuscular Hemoglobin 30.2 pg (28.0-32.0); Mean Corpuscular Volume 94.6 fL (80.0-100.0); Monocytes # (auto) 0.9 10 ^3/uL (0-1.3); Monocytes % (auto) 6.4 % (0.0-12.0); Neutrophils # (auto) 10.6 10 ^3/uL (1.6-8.6); Neutrophils % (auto) 78.5 % (37.0-80.0); Nucleated Red Blood Cells % 0.2 %; Platelet Count (auto) 227 10^3/uL (140-450); Red Blood Cells 3.93 10^6/uL (4.0-5.20); Red Cell Distribution Width 15.9 % (11.8-14.3); White Blood Cell 13.5 10^3/uL (4.4-10.8)
--- NOTE | 2019-09-17 07:29 | NUR ---
PT REMOVED FROM BIPAP AND PLACED ON CA ON 10L AT 35%. SPO2 93%, HR 91, RR16, BP 105/55. NO DISTRESS NOTED. WILL CONTINUE TO MONITOR PT.
--- NOTE | 2019-09-17 07:30 | NUR ---
PLACED PT ON 4L OXYMIZER AND SAVANNAH. WELL. PARRISH ORTEGA MADE AWARE, SPO2 94%, WILL CONTINUE TO MONITOR PT
[2019-09-17 07:45] LABS: Albumin 2.3 g/dL (3.4-5.0); BUN/Creatinine Ratio 15.9; Calcium 7.6 mg/dL (8.5-10.1); Potassium 4.2 mmol/L (3.5-5.1)
[2019-09-17 07:47] LABS: Bilirubin, Total 2.6 mg/dL (0.2-1.0); Total Protein 6.4 g/dL (6.4-8.2)
--- NOTE | 2019-09-17 08:00 | NUR ---
ASSESS- PT. LYING IN BED WITH EYES CLOSED, AROUSABLE TO NAME. ALERT TO SELF AND PLACE ONLY AT THIS TIME. DENIES ANY PAIN OR DISCOMFORT. LUNGS COARSE FERMÍN. INSPIRATORY AND EXPIRATORY. ON COOL MIST MASK FIO2-40%. NO SOB. NON-PRODUCTIVE MOIST COUGH. ABD. SOFT, TENDER, LG. BOWEL SOUNDS HYPOACTIVE ALL FOUR QUADRANTS. NO N/V. PT. IS NPO. ABD. BINDER IN PLACE. MID-LINE ABD. INCISION WITH DSG. D/I. CELSO TO ABD. TO BULB SUCTION WITH SANGUINOUS DRAINAGE. F/C TO GRAVITY WITH CLEAR DK. FIDE URINE. RADIAL PULSES STRONG, PALPABLE FERMÍN. DORSALIS PEDAL PULSES STRONG, PALPABLE FERÍMN. SCD TO LT. LEG. BP CUFF TO RT. CALF. PICC KRIS TLC INTACT. A-LINE LT. RADIAL INTACT WITH GOOD WAVEFORM.
--- NOTE | 2019-09-17 09:37 | NUR ---
DR. REED Provider/Hospitalist at bedside. GAVE UPDATE ON PT. NEW ORDERS RECEIVED.
--- NOTE | 2019-09-17 10:00 | NUR ---
RT TOOK PT. OFF COOL MIST MASK AND PLACED ON OXYMIZER 4L. O2 SATS MID 90'S. LUNGS COARSE FERMÍN. NO SIGNS OF RESP. DISTRESS.
[2019-09-17] MEDS: SODIUM CHLOR 0.9% PF (SALINE LOCK) 10ML VIAL/SYR IV SCH ×2 (10:14→21:27)
[2019-09-17] MEDS: PANTOPRAZOLE 40 MG/10 ML VIAL INJ IV SCH (10:14)
--- NOTE | 2019-09-17 10:25 | NUR ---
D'C'D A-LINE LT. RADIAL PER DR. REED. APPLIED 4X4 AND FOAM TAPE. APPLIED PRESSURE FOR 2-3 MIN. UNTIL BLEEDING STOPPED.
--- NOTE | 2019-09-17 10:30 | NUR ---
IV removal IV DC'd with sterile technique, catheter fully intact. Pressure dressing applied to site. Patient tolerated procedure well. Discharged with aftercare instructions per MD. NOTE: D'C'D IV H.L. RT. UPPER CHEST.
[2019-09-17] MEDS: CEFTRIAXONE SODIUM 2 GM in D5W 5% 50 ML IV SCH (10:36)
--- NOTE | 2019-09-17 12:45 | NUR ---
DR. KEMP Provider/Hospitalist at bedside. GAVE UPDATE ON PT. INFORMED OF LOW URINE OUTPUT FOR TODAY'S SHIFT.
[2019-09-17] MEDS: HYDROmorphone HCL 2 MG/ML VL IV PRN ×2 (13:54→21:26)
--- NOTE | 2019-09-17 13:54 | NUR ---
PT. HAVING ABD. PAIN AT INCISIONAL SITE 7 ON A SCALE OF 0-10. MED. WITH DILAUDID 1MG. IVP.
--- NOTE | 2019-09-17 14:20 | NUR ---
PT. MORE COMFORTABLE NOW, NO PAIN OR DISCOMFORT. RESTING WITH EYES CLOSED.
--- NOTE | 2019-09-17 14:55 | NUR ---
PHYSICAL THERAPY FOR EVALUATION. ASSISTED PT. TO CHAIR, STEADY GAIT. TOLERATED WELL.
--- NOTE | 2019-09-17 16:30 | NUR ---
KAREN PT HERE TO PLACE PT. BACK IN BED. MODERATE ASSIST. FROM CHAIR, PIVOTED TO BED. TOLERATED WELL.
--- NOTE | 2019-09-17 17:01 | NUR ---
Assessment Patient is a 54-year-old female who is in ICU. Assessment was completed with patient sister Riya Ph:). Per Riya prior to admission patient lived home with her and functioned independently. Per Riya patient was able to care for her own ADLs. Per Riya patient does not have any medical equipment. Per Riya patient was having difficulty walking and her legs would get swollen due to her diabetes. Per Riya she brought patient to the hospital due to her legs getting to swollen and was unable to ambulate. Informed Riya plan of discharge will be determined after patient is downgraded from ICU. Riya verbalize understanding.
--- NOTE | 2019-09-17 18:11 | NUR ---
Respiratory note: ASSESSED PT FOR PRN BIPAP AT THIS TIME, PT SLEEPING AT THIS TIME, NO RESP DISTRESS NOTED. PULSE OX 96% ON 4L OXYMIZER, HR 78, RR 18
--- NOTE | 2019-09-17 19:40 | NUR ---
OPENING NOTE REPORT RECEIVED FROM KARISHMA SENIOR. PATIENT IS A/OX4 AT THIS TIME, MALAGASY SPEAKING AND ABLE TO VERBALIZE ALL NEEDS. PATIENT IS CONNECTED TO CONTINUOUS MONITOR. HEART RATE FLUCTUATING IN 70'S, SPO2 AT 95% ON 4L OXYMIZER. PHYSICAL ASSESSMENT DONE-SEE INTERVENTIONS FOR FULL DETAILS. INCISION SITE TO ABDOMEN WITH OLD DRAINAGE NOTED, NO NEW DRAINAGE. CELSO DRAIN TO RIGHT LOWER ABDOMEN. ABDOMINAL BINDER IN PLACE. VACA DRAINING DARK FIDE URINE TO GRAVITY. INCENTIVE SPIROMETER AT BEDSIDE, PATIENT ABLE TO DEMONSTRATE USE, ONLY ABLE TO REACH 500 LINE. PICC LINE TO RIGHT UPPER ARM, TRIPLE LUMEN CATH, RUNNING NS AT 100ML/HR-SEE IV SPREAD SHEET. SCD'S ON BILATERALLY. PATIENT ABLE TO ASSIST WITH REPOSITIONING. CALL LIGHT WITHIN REACH. FALL PRECAUTIONS IN PLACE.
[2019-09-18] VITALS (20 sets, daily range): BP systolic 107–180; BP diastolic 40–77
--- NOTE | 2019-09-18 | NUR ---
LOW GRADE TEMP ORAL TEMP 99.6F. COOLING MEASURES INITIATED, BLANKET REMOVED, ICE PACKS PLACED UNDER AXILLA AND ROOM TEMPERATURE DECREASED. WILL CONTINUE TO MONITOR CLOSELY
[2019-09-18] MEDS: ACCU-CHEK COMFORT CURVE STRIP VI SCH ×4 (00:01→17:45)
[2019-09-18] MEDS: InsuLIN REG 1unit/0.01ml Soln (100units/ml) SC SCH ×4 (00:02→18:05)
--- NOTE | 2019-09-18 00:13 | NUR ---
ELEVATED BP PATIENT BP 182/84, HEART RATE 96. ADMINISTERED LABETALOL ORDERED BY MD-SEE EMAR FOR DETAILS. WILL MONITOR BP CLOSELY AND REASSESS IN ONE HOUR
--- NOTE | 2019-09-18 01:13 | NUR ---
BP REASSESS BP NOW 139/56, HEART RATE 66
[2019-09-18] MEDS: HYDROmorphone HCL 2 MG/ML VL IV PRN ×5 (01:34→20:58)
[2019-09-18 04:39] LABS: Basophils # (auto) 0.1 10 ^3/uL (0-0.2); Basophils % (auto) 0.6 % (0.0-2.0); Eosinophils # (auto) 0.1 10 ^3/uL (0-0.8); Eosinophils % (auto) 0.6 % (0.0-7.0); Hematocrit 29.6 % (36.0-46.0); Hemoglobin 9.9 g/dL (12.2-16.2); Lymphocytes % (auto) 7.9 % (10.0-50.0); Mean Corpuscular Hemoglobin 32.1 pg (28.0-32.0); Mean Corpuscular Hgb Conc. 33.6 g/dL (32.0-36.0); Mean Corpuscular Volume 95.5 fL (80.0-100.0); Monocytes # (auto) 0.8 10 ^3/uL (0-1.3); Monocytes % (auto) 6.3 % (0.0-12.0); Neutrophils % (auto) 84.6 % (37.0-80.0); Nucleated Red Blood Cells % 0.1 %; Platelet Count (auto) 192 10^3/uL (140-450); Red Blood Cells 3.09 10^6/uL (4.0-5.20)
[2019-09-18 04:41] LABS: Potassium 4.3 mmol/L (3.5-5.1)
[2019-09-18 04:47] LABS: Albumin 2.3 g/dL (3.4-5.0); BUN/Creatinine Ratio 18.9; Calcium 7.5 mg/dL (8.5-10.1)
[2019-09-18 04:49] LABS: Bilirubin, Total 2.3 mg/dL (0.2-1.0); Total Protein 6.6 g/dL (6.4-8.2)
--- NOTE | 2019-09-18 05:23 | NUR ---
AM CARES PATIENT GIVEN BED BATH. CLEANSED WITH CHG WIPES, AND WARM SOAPY WATER WASH CLOTHS. PATIENT GIVEN LINEN AND GOWN CHANGE AT THIS TIME. AT THIS TIME, IT WAS NOTED THAT DRESSING TO ABDOMINAL INCISION COMING OFF. NEW DRESSING PLACED TO REINFORCE GAUZE OVER INCISION SITE. SKIN REASSESSED AT THIS TIME, NO CHANGES NOTED. PATIENT ABLE TO ASSIST WITH TURNING.
[2019-09-18] MEDS: metroNIDAZOLE 500MG/100ML 100 ML IV SCH ×3 (05:36→21:01)
[2019-09-18] MEDS: SODIUM CHLORIDE 0.9% 1,000 ML IV SCH ×2 (05:45→16:20)
--- NOTE | 2019-09-18 06:25 | NUR ---
Respiratory note: ASSESSED PT FOR PRN BIPAP. HR 70, RR 16, SPO2 97% ON 4LPM OXYMIZER. BREATH SOUNDS CLEAR/DIM T/O, NO S/S OF RESPIRATORY DISTRESS NOTED. BIPAP NOT INDICATED AT THIS TIME. WILL CONTINUE TO MONITOR.
--- NOTE | 2019-09-18 07:11 | NUR ---
CLOSING PATIENT RESTING COMFORTABLY AT THIS TIME. PATIENT SPO2 AT 98% ON 4L OXYMIZER. NO NEW DRAINAGE TO INCISION SITES ON ABDOMEN. NS INFUSING THROUGH RIGHT UPPER ARM PICC-SEE IV SPREADSHEET. WILL ENDORSE CARE TO AM SHIFT RN.
--- NOTE | 2019-09-18 07:30 | NUR ---
REPORT REPORT RECEIVED FROM NIGHT RN. BEDSIDE CHECK DONE. PT RESTING WITH EYES CLOSED AND VSS. CONTINUE TO MONITOR.
--- NOTE | 2019-09-18 08:25 | NUR ---
ASSESSMENT PT OPENS EYES TO NAME AND IS A/O X4. MOSTLY URDU SPEAKING. LUNGS CLEAR THROUGHOUT. O2 AT 4 L/M VIA OXYMIZER WITH O2 SAT OF 98%. USED ID , 10 BREATHS TO 500ML. TELE SR WITH ST ELEVATION IN LEAD II. PALPABLE PULSES TO ALL EXTREMITIES. SCD TO LEFT LEG AND BP CUFF TO THE RIGHT. MIDLINE ABD AND TRANSVERSE UPPER ABD DRESSING WITH CELSO TO THE RIGHT ABD, DRAINING SEROSANGUINOUS FLUID. VACA CATHETER DRAINING DARK FIDE URINE WITH A STRONG SMELL. SKIN INTACT OTHER THAN SURGICAL INCISIONS. TURNED FOR COMFORT. CONTINUE TO MONITOR,
--- NOTE | 2019-09-18 08:55 | NUR ---
PHYSICAL THERAPY Concepcion JONES, AT THE BEDSIDE AND ASSISTED THE PT TO GET OOB TO THE CHAIR. INSTRUCTED PT TO NOT GET UP WITHOUT ASSISTANCE, SHE EXPRESSED UNDERSTANDING. CALL LIGHT WITHIN REACH.
--- NOTE | 2019-09-18 10:20 | NUR ---
PHYSICAL THERAPISTKAREN, ASSISTED PT BACK INTO BED.
--- NOTE | 2019-09-18 10:35 | NUR ---
Nutrition Followup Note Wt 120.5 kg Pt`s awake, sitting up in recliner, resting and eating jello. Pt diet has been advanced to a Full Liquid diet this am. Pt with no distress or complaints. Through engraver hand soft metals, Pt confirmed she is diabetic, has not been educated, and eats a regular diet at home. Pt is interested in DM education and receipt of class schedule so she can attend. Pt also confirmed she has no food allergies. Will continue to closely monitor pertinent labs, PO intake and skin status prn. Will followup in 3-5 days Est Energy needs ABW 86 [id number] kcals (17-20 kcal/kgBW), Est Protein needs: 86-94 gms/day (1.0-1.1 gm/kgBW) Will continue to monitor and reassess prn. Labs: GLU 162 H, A1c 7.8 H, Ca 7.5 L, FERMÍN 2.3 L, ALB 2.3 L BM: 2 09/12 per RN doc Skin: BS 17 low risk, full details in caregiver services home doc. PES Decreased nutrient needs r.t adiposity aeb pt`s high BMI of 46.9 kgm2 Altered nutrition related lab values r/t current medical condition aeb elev creat a1c hypocalcemia Comments: 1) Continue to monitor po intake, labs, skin. 2) refer to CDE on DC. 3) Advance diet as medically feasible. 4) continue current plan of care
[2019-09-18] MEDS: CEFTRIAXONE SODIUM 2 GM in D5W 5% 50 ML IV SCH (10:38)
[2019-09-18] MEDS: PANTOPRAZOLE 40 MG/10 ML VIAL INJ IV SCH (10:38)
[2019-09-18] MEDS: SODIUM CHLOR 0.9% PF (SALINE LOCK) 10ML VIAL/SYR IV SCH ×2 (10:48→22:28)
--- NOTE | 2019-09-18 10:50 | NUR ---
PAIN PT WITH C/O PAIN TO THE ABD, 10/07. MEDICATED WITH DILAUDID 1 MG IV. PT BACK IN BED WITH BED IN LOW POSITION AND RAILS UP FOR PT SAFETY.. INSTRUCTED PT NOT TO GET OOB AND SHE EXPRESSED UNDERSTANDING.
--- NOTE | 2019-09-18 11:00 | NUR ---
PT SLEEPING AT THIS TIME. NO SIGN OF ANY RESP DISCOMFORT. WILL CONTINUE TO MONITOR.
--- NOTE | 2019-09-18 11:00 | NUR ---
REPORT GIVEN TO PARRISH MARINELLI, WHO IS ASSUMING CARE OF THIS PT.
--- NOTE | 2019-09-18 13:00 | NUR ---
PT TOLERATED FULL LIQUID DIET WELL. NO NAUSEA/ VOMITING PRESENTED. CONSUMED 60 % OF FOOD SERVED.
[2019-09-18] MEDS: METOCLOPRAMIDE HCL 10 MG TAB PO SCH ×2 (13:31→21:01)
--- NOTE | 2019-09-18 14:00 | NUR ---
PT REFUSED TO TURN AT THIS TIME. SHE SAID " I'M COMFORTABLE " RIGHT NOW . I WILL TURN LATER.
[2019-09-18] MEDS ORDERED: FUROSEMIDE 20 MG/2 ML VIAL IV ONE (14:45)
[2019-09-18] MEDS ORDERED: POTASSIUM CHL 20 Meq TABLET PO ONE (14:45)
--- NOTE | 2019-09-18 15:45 | NUR ---
PT DOWNGRADED TO TRUMAN. REPORT GIVEN TO PARRISH HAYNES.
--- NOTE | 2019-09-18 16:00 | NUR ---
PT TRANSFERRED TO TRUMAN VIA BED WITH O2 AND MONITOR ON. PT STABLE AT TIME OF TRANSFER.
--- NOTE | 2019-09-18 16:00 | NUR ---
OPEN: TRANSFER FROM ICU TO TRUMAN ROOM 264 RECEIVED REPORT FROM PARRISH MARINELLI. ASSUMED CARE OF TRUMAN PATIENT, FULL CODE STATUS. PATIENT A & O X4, CALM AND FOLLOWS COMMANDS. PATIENT MOSTLY ZAMBIAN SPEAKING. PATIENT RECEIVED IN BED, O2 AT 4L VIA OXYMIZER. VACA TO GRAVITY. SCD PLACED TO RIGHT LE. BP CUFF PLACED TO LEFT CALF. CURRENT V/S HR 68, SR, RR 20, 96% O2 SATS, BP 144/50. PAIN 7/10, ABDOMINAL PAIN. PATIENT SPLINTING AT THIS TIME. WILL GIVE PAIN MEDICINE, SEE EMAR FOR TIME GIVEN. RIGHT UPPER ARM PICC LINE, FLUSHED AND PATENT, DRESSING CDI. SKIN REMAINS INTACT. PATIENT WANTING TO LAY ON BACK AT THIS TIME. NS AT 75 ML/HR. SEE EMAR FOR TIMES OF MEDS GIVEN. CONTINUE CARE.
--- NOTE | 2019-09-18 22:51 | NUR ---
RT NOTE PT PLACED ON BIPAP B8 ON STATED SETTINGS WITH MEDIUM MASK. BIPAP IS PLUGGED TO RED OUTLET. ALARMS ARE ON AND AUDIBLE TO NURSING. LEAK TEST PASSED PRIOR TO PLACEMENT. PT APPEARS TO TOLERATE WELL. SKIN IS INTACT. CONT ORDERED. POX 98% Addendum: 09/19/19 at 0133 by Emy Alas RT Amended: Links added.
[2019-09-19] VITALS (7 sets, daily range): BP systolic 119–177; BP diastolic 43–81
--- NOTE | 2019-09-19 00:51 | NUR ---
RT NOTE ROUTINE BIPAP CHECK DONE. PT ON BIPAP B8 ON STATED SETTINGS WITH MEDIUM MASK. BIPAP IS PLUGGED TO RED OUTLET. ALARMS ARE ON AND AUDIBLE TO NURSING. PT IS ON CONTINUOUS POX PER PROTOCOL. PT APPEARS TO TOLERATE WELL. SKIN IS INTACT. CONT ORDERED. POX 99% Addendum: 09/19/19 at 0133 by Emy Alas RT Amended: Links added.
[2019-09-19] MEDS: HYDROmorphone HCL 2 MG/ML VL IV PRN ×5 (01:27→18:13)
--- NOTE | 2019-09-19 01:30 | NUR ---
RT NOTE PT WAS TAKEN OFF BIPAP AND PLACED ON 4L OXYMIZER BY PARRISH KANG PER PT REQUEST. NO SOB OR DISTRESS NOTED
[2019-09-19] MEDS: metroNIDAZOLE 500MG/100ML 100 ML IV SCH ×3 (05:03→22:08)
[2019-09-19] MEDS: SODIUM CHLORIDE 0.9% 1,000 ML IV SCH ×2 (05:03→18:32)
[2019-09-19] MEDS: METOCLOPRAMIDE HCL 10 MG TAB PO SCH ×3 (05:03→22:08)
[2019-09-19] MEDS: InsuLIN REG 1unit/0.01ml Soln (100units/ml) SC SCH ×4 (05:46→17:52)
[2019-09-19] MEDS: ACCU-CHEK COMFORT CURVE STRIP VI SCH ×4 (05:46→17:52)
[2019-09-19 05:47] LABS: Basophils # (auto) 0 10 ^3/uL (0-0.2); Basophils % (auto) 0.2 % (0.0-2.0); Eosinophils # (auto) 0.3 10 ^3/uL (0-0.8); Eosinophils % (auto) 2.5 % (0.0-7.0); Hematocrit 28.1 % (36.0-46.0); Hemoglobin 9.2 g/dL (12.2-16.2); Lymphocytes # (auto) 1.2 10 ^3/uL (0.4-5.4); Lymphocytes % (auto) 9.1 % (10.0-50.0); Mean Corpuscular Hgb Conc. 32.8 g/dL (32.0-36.0); Mean Corpuscular Volume 97.5 fL (80.0-100.0); Monocytes # (auto) 0.8 10 ^3/uL (0-1.3); Monocytes % (auto) 5.8 % (0.0-12.0); Neutrophils # (auto) 11.2 10 ^3/uL (1.6-8.6); Neutrophils % (auto) 82.4 % (37.0-80.0); Nucleated Red Blood Cells % 0.1 %; Platelet Count (auto) 184 10^3/uL (140-450); Red Blood Cells 2.88 10^6/uL (4.0-5.20); Red Cell Distribution Width 15.9 % (11.8-14.3); White Blood Cell 13.6 10^3/uL (4.4-10.8)
[2019-09-19 05:56] LABS: Calcium 7.4 mg/dL (8.5-10.1); Potassium 3.9 mmol/L (3.5-5.1)
--- NOTE | 2019-09-19 06:45 | NUR ---
Pt has remained stable this shift. Has maintained abd binder on throughout the night. CELSO drain patent although drainage clotted in tubing so CELSO tubing was milked to move clotted drainage along through the tube. Pt has needed pain medication as often as it comes due. Picc line patent, all ports flushing. No S/S of distress this shift. Will give report to AM shift.
--- NOTE | 2019-09-19 07:45 | NUR ---
OPENING SHIFT NOTE: Received report from NOC RN, Brandee. Assumed care of patient. Received patient in bed, connected to bedside monitor with alarms in place. Patient is hebrew speaking only. No s/s of distress noted, denies pain. Patient on 4L Oxymizer with Os sats 98%. Patient with right upper arm TL PICC line that all ports flush and has NS running at 75ml/hr. Fair draining dark venus urine. Abdominal binder in place with CELSO drain to RL quadrant. Bed in lowest position, rails x2 up and call light within reach. Patient is currently medsurg waiting on bed assignment. Updated on plan of care. Will continue to monitor.
--- NOTE | 2019-09-19 09:15 | NUR ---
Report given to PARRISH Salgado. Patient transferred to [address] via bed on oxygen.
--- NOTE | 2019-09-19 09:20 | NUR ---
PATIENT BROUGHT TO ROOM VIA BED FROM TRUMAN. PATIENT ORIENTED TO ROOM, CALL LIGHT PLACED BED SIDE, BED IN LOCKED AND LOWEST POSITION WITH 2X SIDE RAILS UP. NO COMPLAINTS OF PAIN AT THIS TIME. WILL CONTINUE TO MONITOR Q1H AND PRN. PATIENT VS: 158/71, 98.8, 71, 98%, 19.
[2019-09-19] MEDS: PANTOPRAZOLE 40 MG/10 ML VIAL INJ IV SCH (09:53)
[2019-09-19] MEDS: SODIUM CHLOR 0.9% PF (SALINE LOCK) 10ML VIAL/SYR IV SCH ×2 (09:54→22:08)
[2019-09-19] MEDS: CEFTRIAXONE SODIUM 2 GM in D5W 5% 50 ML IV SCH (10:16)
[2019-09-19] MEDS: hydrALAZINE HCL 20 MG/ML VL IV PRN ×2 (11:10→22:15)
--- NOTE | 2019-09-19 16:55 | NUR ---
DR FUENTES BEDSIDE WITH PATIENT DISCUSSING PLAN OF CARE
--- NOTE | 2019-09-19 17:23 | NUR ---
BLOOD PRESSURE RECHECKED BP, WAS 161/80, RECHECK WAS 130/83. NO MEDS GIVEN
--- NOTE | 2019-09-19 19:35 | NUR ---
OPENING SHIFT NOTE Assumed care of patient who is A&O x4, Sami speaking only. Currently on 4L NC with diminished lung sounds through. Reports 10/10 left upper abdominal pain. Pain management options discussed. Surgical dressings present in midline abdomen and left upper abdomen. Dressings are intact. Old dry sanguinous drainage noted. Abdominal binder in place. Fair catheter noted to be intact and patent. Tubing is free from kinks, draining venus colored urine into collection bag hung below the level of the bladder. Bed is in low locked position with side rails up x2. Call light within reach and patient encouraged to call for assistance when needed. Will continue to monitor for changes PRN.
--- NOTE | 2019-09-19 22:00 | NUR ---
VITAL SIGNS Oral temperature recorded at 99.8. Cooling measures applied. BP is 177/81. Hydralazine 10mg administered according to orders. Will reassess.
--- NOTE | 2019-09-19 22:48 | NUR ---
Respiratory note: CALLED TO BEDSIDE PT REQUESTING BIPAP DUE TO WOB. PT SOUTH AFRICAN SPEAKER. PT WAS BEING MOVED IN BED. PLACED ON BIPAP UNIT B8, BIPAP CONNECTED TO RED OUTLET AND O2 SOURCE ALARMS ARE SET AND AUDIBLE. AMBU BAG AND MASK AT BEDSIDE. BS ARE DIMINISHED T/O. WILL CONTINUE TO MONITOR Q2H. PT AWARE I CAN BE PAGED IF SHE HAS ANY CONCERN WITH HER BREATHING OR RESPIRATORY EQUIPMENT.RT NAME AND PAGER ASSIGNMENT WRITTEN ON PTS ROOM. RN МАРИНА MADE AWARE OF PLACEMENT.
--- NOTE | 2019-09-19 23:43 | NUR ---
BIPAP Patient reports difficulty breathing while on bipap. Bipap removed and patient placed on 4L NC. Continuous pulse oximetry in place. RT paged to notify.
[2019-09-20] MEDS: ACCU-CHEK COMFORT CURVE STRIP VI SCH ×5 (00:09→23:38)
[2019-09-20] MEDS: InsuLIN REG 1unit/0.01ml Soln (100units/ml) SC SCH ×5 (00:15→23:38)
--- NOTE | 2019-09-20 00:25 | NUR ---
REASSESSMENT BP reassessed and is 122/70, HR 108. Oral temperature is 100.2. Additional cooling measures applied and hospitalist paged to request order for Tylenol. Awaiting call back.
[2019-09-20] MEDS: ACETAMINOPHEN 325 MG TAB PO PRN (00:45)
--- NOTE | 2019-09-20 01:48 | NUR ---
Reassessment Oral temperature reassessed and is 97.9. Cooling measures discontinued.
--- NOTE | 2019-09-20 01:49 | NUR ---
Patient sitting up on edge of bed. States "there is water on the floor". Upon assessment it is noted that the patient has inadvertently pulled out her Fair catheter. Addendum: 09/20/19 at 0459 by МАРИНА WEBSTER RN RN 700ml venus colored urine in collection bag at time of removal.
[2019-09-20] MEDS: HYDROmorphone HCL 2 MG/ML VL IV PRN (03:11)
--- NOTE | 2019-09-20 04:32 | NUR ---
Carrasco catheter insertion Patient assessed and determined to be in need of carrasco catheter. Patient educated on catheter and reason for insertion. All questions answered. Carrasco catheter 16 Albanian inserted with clean sterile technique. Patient tolerated well.
[2019-09-20 05:00] VITALS: BP 155/68
[2019-09-20] MEDS: metroNIDAZOLE 500MG/100ML 100 ML IV SCH (06:31)
[2019-09-20] MEDS: METOCLOPRAMIDE HCL 10 MG TAB PO SCH (06:32)
[2019-09-20] MEDS: SODIUM CHLORIDE 0.9% 1,000 ML IV SCH (06:32)
[2019-09-20] MEDS: hydrALAZINE HCL 20 MG/ML VL IV PRN (06:53)
--- NOTE | 2019-09-20 06:55 | NUR ---
CELSO DRAIN OUTPUT Total of 400ml brown-red drainage emptied from CELSO drain this shift.
--- NOTE | 2019-09-20 07:22 | NUR ---
RECD PT OFF BIPAP AND ON 4LNC, SPO2 97%, HR 76, RR 20. NO S.S OF RESPIRATORY DISTRESS.
--- NOTE | 2019-09-20 08:15 | NUR ---
PAGED DR REED TO INFORM OF PATIENTS INCREASE IN CELSO DRAINAGE
--- NOTE | 2019-09-20 08:21 | NUR ---
INFORMED DR REED OF PATIENTS INCREASED CELSO DRAINING OUTPUT AND SLIGHT FEVER DURING THE NIGHT. NO ORDERS RECEIVED.
[2019-09-20 09:25] LABS: Basophils # (auto) 0.1 10 ^3/uL (0-0.2); Basophils % (auto) 0.3 % (0.0-2.0); Eosinophils # (auto) 0 10 ^3/uL (0-0.8); Hematocrit 31.9 % (36.0-46.0); Lymphocytes # (auto) 1.2 10 ^3/uL (0.4-5.4); Mean Corpuscular Hemoglobin 31.6 pg (28.0-32.0); Mean Corpuscular Hgb Conc. 31.4 g/dL (32.0-36.0); Mean Corpuscular Volume 100.8 fL (80.0-100.0); Monocytes # (auto) 1.1 10 ^3/uL (0-1.3); Monocytes % (auto) 4.8 % (0.0-12.0); Neutrophils # (auto) 21.2 10 ^3/uL (1.6-8.6); Neutrophils % (auto) 89.9 % (37.0-80.0); Platelet Count (auto) 277 10^3/uL (140-450); Red Blood Cells 3.16 10^6/uL (4.0-5.20); Red Cell Distribution Width 17.2 % (11.8-14.3); White Blood Cell 23.6 10^3/uL (4.4-10.8)
[2019-09-20 09:55] LABS: BUN/Creatinine Ratio 12.9; Calcium 7.9 mg/dL (8.5-10.1); Potassium 3.5 mmol/L (3.5-5.1)
[2019-09-20 09:57] VITALS: BP 130/62
[2019-09-20] MEDS: CEFTRIAXONE SODIUM 2 GM in D5W 5% 50 ML IV SCH (10:24)
[2019-09-20] MEDS: PANTOPRAZOLE 40 MG/10 ML VIAL INJ IV SCH (10:24)
[2019-09-20] MEDS: SODIUM CHLOR 0.9% PF (SALINE LOCK) 10ML VIAL/SYR IV SCH ×2 (10:24→21:26)
--- NOTE | 2019-09-20 12:30 | NUR ---
DR KEMP BEDSIDE WITH PATIENT DISCUSSING PLAN OF CARE
[2019-09-20] MEDS ORDERED: levoFLOXacin 500MG 100 ML IV ONE (12:45)
[2019-09-20] MEDS ORDERED: HYDROmorphone HCL 2 MG/ML VL IV PRN (12:45)
[2019-09-20 13:00] VITALS: BP 129/64
[2019-09-20] MEDS: metroNIDAZOLE 500 MG TAB PO SCH ×2 (13:55→21:26)
--- NOTE | 2019-09-20 14:10 | NUR ---
Carrasco catheter dc'd Order to discontinue carrasco catheter. Carrasco dc'd with clean technique following deflation of balloon. Patient tolerated well with no complaints of pain. Continue care.
[2019-09-20 16:55] VITALS: BP 130/61
[2019-09-20] MEDS: HYDROcodone-ACET 5/325MG TAB PO PRN (17:43)
--- NOTE | 2019-09-20 18:11 | NUR ---
CELSO DRAIN OUTPUT TOTAL OF 245 ML OF RED/BROWN DRAINAGE EMPTIED FROM CELSO
--- NOTE | 2019-09-20 18:42 | NUR ---
PATIENT WANTED HER BLOOD PRESSURE CHECKED. SHE WAS FEELING HOT AND THOUGHT IT WAS ELEVATED. BLOOD PRESSURE 112/55. NO OTHER SYMPTOMS OR DISCOMFORT REPORTED. WILL CONTINUE TO MONITOR.
--- NOTE | 2019-09-20 20:00 | NUR ---
assumed care, pt. awake, no c/o pain, dressing on abdominal area dry and intact, no sob.
[2019-09-20 22:27] VITALS: BP 124/59
[2019-09-21 02:02] VITALS: BP 124/59
[2019-09-21] MEDS: HYDROcodone-ACET 5/325MG TAB PO PRN ×2 (02:32→20:19)
[2019-09-21 05:00] VITALS: BP_SYST 105; BP_SYST 97; BP_DIAS 41; BP_DIAS 56
[2019-09-21] MEDS: metroNIDAZOLE 500 MG TAB PO SCH ×3 (05:30→21:33)
[2019-09-21] MEDS: InsuLIN REG 1unit/0.01ml Soln (100units/ml) SC SCH ×4 (05:32→23:22)
[2019-09-21] MEDS: ACCU-CHEK COMFORT CURVE STRIP VI SCH ×4 (05:32→23:23)
[2019-09-21 05:39] LABS: Basophils # (auto) 0.1 10 ^3/uL (0-0.2); Basophils % (auto) 0.2 % (0.0-2.0); Eosinophils # (auto) 0 10 ^3/uL (0-0.8); Eosinophils % (auto) 0.1 % (0.0-7.0); Hematocrit 27.7 % (36.0-46.0); Hemoglobin 9.1 g/dL (12.2-16.2); Lymphocytes # (auto) 0.9 10 ^3/uL (0.4-5.4); Mean Corpuscular Hemoglobin 31.9 pg (28.0-32.0); Mean Corpuscular Hgb Conc. 32.8 g/dL (32.0-36.0); Mean Corpuscular Volume 97.4 fL (80.0-100.0); Monocytes # (auto) 1.2 10 ^3/uL (0-1.3); Monocytes % (auto) 5.5 % (0.0-12.0); Neutrophils # (auto) 19.6 10 ^3/uL (1.6-8.6); Neutrophils % (auto) 90.2 % (37.0-80.0); Platelet Count (auto) 235 10^3/uL (140-450); Red Blood Cells 2.85 10^6/uL (4.0-5.20); Red Cell Distribution Width 17.2 % (11.8-14.3); White Blood Cell 21.8 10^3/uL (4.4-10.8)
[2019-09-21 06:04] LABS: Potassium 3.3 mmol/L (3.5-5.1)
[2019-09-21 06:11] LABS: Albumin 2.3 g/dL (3.4-5.0); BUN/Creatinine Ratio 14.5; Bilirubin, Total 2.6 mg/dL (0.2-1.0); Calcium 7.7 mg/dL (8.5-10.1); Total Protein 6.8 g/dL (6.4-8.2)
--- NOTE | 2019-09-21 07:27 | NUR ---
Respiratory note: PT NOT ON BIPAP AT THIS TIME. SPO2 100% ON 4L NC, HR 74, RR 20. DECREASED TO 3LPM. PT IS GEORGIAN SPEAKING ONLY, NO SOB NOTED. BIPAP AND CONT. POX AT BEDSIDE.
[2019-09-21 08:48] VITALS: BP 127/59
[2019-09-21] MEDS: SODIUM CHLOR 0.9% PF (SALINE LOCK) 10ML VIAL/SYR IV SCH ×2 (10:00→21:32)
--- NOTE | 2019-09-21 10:15 | NUR ---
Nutrition Followup Note Wt 122.5 kg Pt`s awake, sitting up in recliner. Pt diet has been advanced to soft, CCHO 60g. Pt with no distress or complaints. Pt intake is inadequate aeb pt with 50% avg po intake since diet advanced to soft diet 09/18 per RN nutrition doc. Will continue to closely monitor pertinent labs, PO intake and skin status prn. Will followup in 3-5 days Est Energy needs ABW 86 [id number] kcals (17-20 kcal/kgBW), Est Protein needs: 86-94 gms/day (1.0-1.1 gm/kgBW) Will continue to monitor and reassess prn. Labs: GLUC 153H, Ca 7.7L, Alb 2.3L BM: 4 09/20 per RN doc Skin: BS 18 low risk, full details in pulmonary care nurse doc. PES Decreased nutrient needs r.t adiposity aeb pt`s high BMI of 46.9 kgm2 Altered nutrition related lab values r/t current medical condition aeb elev creat a1c hypocalcemia Comments: 1) Continue to monitor po intake, labs, skin. 2) refer to CDE on DC. 3) Advance diet as medically feasible. 4) continue current plan of care
[2019-09-21] MEDS ORDERED: FUROSEMIDE 20 MG TAB PO ONE (11:15)
[2019-09-21] MEDS ORDERED: POTASSIUM CHL 20 Meq TABLET PO ONE (11:15)
[2019-09-21] MEDS: PANTOPRAZOLE 40 MG TAB PO SCH (11:32)
[2019-09-21] MEDS: levoFLOXacin 500MG 100 ML IV SCH (11:32)
[2019-09-21 13:00] VITALS: BP 123/60
[2019-09-21 17:10] VITALS: BP 106/70
--- NOTE | 2019-09-21 19:45 | NUR ---
assumed care, pt. awake, no c/o pain, no sob.
[2019-09-21 22:00] VITALS: BP 146/73
--- NOTE | 2019-09-22 00:22 | NUR ---
Respiratory note: PT IS REFUSING BIPAP AT THIS TIME. PT IS CURRENTLY ON 3 L/M NC WITH 94% SPO2. PT SHOWS NO S/S OF SOB OR RESPIRATORY DISTRESS. WILL CONTINUE TO MONITOR.
[2019-09-22 05:00] VITALS: BP 152/78
[2019-09-22] MEDS: InsuLIN REG 1unit/0.01ml Soln (100units/ml) SC SCH ×4 (05:21→23:13)
[2019-09-22] MEDS: ACCU-CHEK COMFORT CURVE STRIP VI SCH ×4 (05:21→23:10)
[2019-09-22] MEDS: metroNIDAZOLE 500 MG TAB PO SCH ×3 (05:30→21:36)
[2019-09-22 05:41] LABS: Basophils # (auto) 0 10 ^3/uL (0-0.2); Basophils % (auto) 0.2 % (0.0-2.0); Eosinophils # (auto) 0.1 10 ^3/uL (0-0.8); Eosinophils % (auto) 0.3 % (0.0-7.0); Hematocrit 27.3 % (36.0-46.0); Hemoglobin 8.8 g/dL (12.2-16.2); Lymphocytes # (auto) 1.2 10 ^3/uL (0.4-5.4); Lymphocytes % (auto) 5.8 % (10.0-50.0); Mean Corpuscular Hemoglobin 31.4 pg (28.0-32.0); Mean Corpuscular Hgb Conc. 32.1 g/dL (32.0-36.0); Mean Corpuscular Volume 97.6 fL (80.0-100.0); Monocytes # (auto) 1.5 10 ^3/uL (0-1.3); Monocytes % (auto) 7.4 % (0.0-12.0); Neutrophils # (auto) 17.5 10 ^3/uL (1.6-8.6); Neutrophils % (auto) 86.3 % (37.0-80.0); Platelet Count (auto) 302 10^3/uL (140-450); Red Cell Distribution Width 17.2 % (11.8-14.3); White Blood Cell 20.3 10^3/uL (4.4-10.8)
[2019-09-22 05:59] LABS: Potassium 3.5 mmol/L (3.5-5.1)
--- NOTE | 2019-09-22 07:00 | NUR ---
Opening Shift Note Received report on the patient. Awake lying in bed. Patient shows no signs of distress at this time. Tried to discussed the plan of care with the patient, but there was a language barrier. Bed in lowest position, side rails up x2, and call light is within reach.
[2019-09-22 09:00] VITALS: BP 112/57
[2019-09-22] MEDS: levoFLOXacin 500MG 100 ML IV SCH (09:49)
[2019-09-22] MEDS: PANTOPRAZOLE 40 MG TAB PO SCH (09:50)
[2019-09-22] MEDS: SODIUM CHLOR 0.9% PF (SALINE LOCK) 10ML VIAL/SYR IV SCH ×2 (09:50→21:36)
--- NOTE | 2019-09-22 10:08 | NUR ---
Emptied 125ml out of CELSO drain
[2019-09-22 13:00] VITALS: BP 117/54
--- NOTE | 2019-09-22 14:09 | NUR ---
Dr. Mason at bedside. New orders received.
[2019-09-22] MEDS ORDERED: FUROSEMIDE 40 MG/4 ML VIAL IV ONE (14:15)
[2019-09-22] MEDS ORDERED: POTASSIUM CHL 20 Meq TABLET PO ONE (14:15)
--- NOTE | 2019-09-22 14:18 | NUR ---
Dr. Mason and Sukhdevcl aware of the amount and color of the drainage in the CELSO drain.
--- NOTE | 2019-09-22 15:03 | NUR ---
Drained another 100ml from CELSO
[2019-09-22 16:32] VITALS: BP 121/56
--- NOTE | 2019-09-22 18:06 | NUR ---
Drained another 100ml from the CELSO
--- NOTE | 2019-09-22 19:06 | NUR ---
Endorsed care to PARRISH Oliver. Patient shows no signs of distress.
--- NOTE | 2019-09-22 19:54 | NUR ---
PATIENT CELSO DRAIN EMPTIED CELSO DRAIN EMPTIED AT THIS TIME WITH 30 ML OF DARK REDDISH BROWN FLUID. DRESSING IS CLEAN DRY AND INTACT AT THIS TIME. ABDOMINAL BINDER PLACED BACK. WILL CONTINUE TO MONITOR.
--- NOTE | 2019-09-22 20:00 | NUR ---
OPENING NOTE RECEIVED REPORT FROM DAYSHIFT RN. ASSUMING ROLE OF CARE OF PATIENT AT THIS TIME. PATIENT SHOWING NO SIGN OF DISTRESS, SHORTNESS OF BREATH, AND PATIENT DENIES ANY PAIN AT THIS TIME. PATIENT EDUCATED ON PLAN OF CARE FOR THE NIGHT AND PATIENT VERBALIZED UNDERSTANDING. DRESSING CDI, CELSO DRAIN DRAINING PROPERLY. BED LOWERED CALL LIGHT WITHIN REACH AND PATIENT WILL BE ROUNDED ON EVERY HOUR AND NEEDED.
--- NOTE | 2019-09-22 21:43 | NUR ---
EMPTIED ANOTHER 65 ML OF BROWNISH RED FLUID FROM CELSO DRAIN. PATIENT TOLERATED WELL.
[2019-09-22 22:00] VITALS: BP 117/62
[2019-09-22] MEDS: HYDROcodone-ACET 5/325MG TAB PO PRN (23:11)
--- NOTE | 2019-09-23 00:10 | NUR ---
EMPTIED APPROXIMATELY 80 ML OF BROWNISH GREEN FLUID.
[2019-09-23] MEDS: ACETAMINOPHEN 325 MG TAB PO PRN (01:32)
--- NOTE | 2019-09-23 03:13 | NUR ---
Another 75 ml of brown/ red fluid emtpied from amanda drain
[2019-09-23 05:00] VITALS: BP 120/60
--- NOTE | 2019-09-23 05:00 | NUR ---
APPROXIMATELY 50 ML OF BROWNISH RED FLUID REMOVED FROM CELSO DRAIN.
[2019-09-23] MEDS: metroNIDAZOLE 500 MG TAB PO SCH ×3 (05:10→21:49)
[2019-09-23] MEDS: ACCU-CHEK COMFORT CURVE STRIP VI SCH ×4 (05:17→23:38)
[2019-09-23] MEDS: InsuLIN REG 1unit/0.01ml Soln (100units/ml) SC SCH ×4 (05:18→23:38)
[2019-09-23 06:11] LABS: Basophils # (auto) 0.1 10 ^3/uL (0-0.2); Basophils % (auto) 0.3 % (0.0-2.0); Eosinophils # (auto) 0.1 10 ^3/uL (0-0.8); Eosinophils % (auto) 0.4 % (0.0-7.0); Hematocrit 27.1 % (36.0-46.0); Hemoglobin 8.8 g/dL (12.2-16.2); Lymphocytes # (auto) 1.3 10 ^3/uL (0.4-5.4); Lymphocytes % (auto) 7.2 % (10.0-50.0); Mean Corpuscular Hemoglobin 31.5 pg (28.0-32.0); Mean Corpuscular Hgb Conc. 32.4 g/dL (32.0-36.0); Mean Corpuscular Volume 97.4 fL (80.0-100.0); Monocytes # (auto) 1.7 10 ^3/uL (0-1.3); Monocytes % (auto) 9.5 % (0.0-12.0); Neutrophils # (auto) 14.6 10 ^3/uL (1.6-8.6); Neutrophils % (auto) 82.6 % (37.0-80.0); Platelet Count (auto) 358 10^3/uL (140-450); Red Blood Cells 2.79 10^6/uL (4.0-5.20); Red Cell Distribution Width 17.1 % (11.8-14.3); White Blood Cell 17.7 10^3/uL (4.4-10.8)
[2019-09-23 06:39] LABS: Calcium 7.5 mg/dL (8.5-10.1); Potassium 3.1 mmol/L (3.5-5.1)
[2019-09-23 06:44] LABS: Albumin 2.1 g/dL (3.4-5.0); BUN/Creatinine Ratio 12.5; Bilirubin, Total 2.2 mg/dL (0.2-1.0)
--- NOTE | 2019-09-23 07:59 | NUR ---
Drained 100 ml from CELSO
[2019-09-23 09:00] VITALS: BP 142/69
--- NOTE | 2019-09-23 09:00 | NUR ---
Spoke to Dr Garza about CELSO drainage. New orders received.
--- NOTE | 2019-09-23 09:30 | NUR ---
[employer] Victoria drained 50ml from CELSO
[2019-09-23] MEDS: PANTOPRAZOLE 40 MG TAB PO SCH (09:45)
[2019-09-23] MEDS: SODIUM CHLOR 0.9% PF (SALINE LOCK) 10ML VIAL/SYR IV SCH ×2 (09:45→21:49)
[2019-09-23] MEDS: POTASSIUM CHL 20 Meq TABLET PO SCH (09:45)
[2019-09-23] MEDS: levoFLOXacin 500MG 100 ML IV SCH (09:45)
[2019-09-23] MEDS ORDERED: FUROSEMIDE 40 MG/4 ML VIAL IV SCH (10:00)
--- NOTE | 2019-09-23 11:07 | NUR ---
Dr Garza came to see the patient, but she was off the unit in the hida scan
--- NOTE | 2019-09-23 12:30 | NUR ---
Drained 50ml from CELSO
[2019-09-23 13:00] VITALS: BP 154/76
--- NOTE | 2019-09-23 13:07 | NUR ---
Dr Mason at bedside. New orders received.
[2019-09-23] MEDS ORDERED: POTASSIUM CHL 20 Meq TABLET PO ONE (13:15)
[2019-09-23 16:39] VITALS: BP 119/71
--- NOTE | 2019-09-23 17:16 | NUR ---
Drained 100ml out of CELSO
--- NOTE | 2019-09-23 19:11 | NUR ---
Endorsed care to PARRISH Oliver. Patient shows no signs of distress.
--- NOTE | 2019-09-23 20:00 | NUR ---
Opening Shift Note Assumed care of patient, awake and alert. No S/S of distress/SOB or pain. Instructed on POC and to call for assist PRN, will continue to monitor for changes Q1hr and PRN. CELSO DRAIN EMPTIED OF 100ML OF BROWNISH GREEN FLUID.
[2019-09-23 21:45] VITALS: BP 135/83
--- NOTE | 2019-09-23 22:00 | NUR ---
AN ADDITIONAL 100ML OF BROWNISH GREEN FLUID EMPTIED AT THIS TIME. MD AWARE OF DRAINAGE OUTPUT
--- NOTE | 2019-09-23 23:30 | NUR ---
AN ADDITIONAL 95 ML OF BROWNISH GREEN FLUID PULLED FROM CELSO DRAIN
[2019-09-24] MEDS ORDERED: TEMAZEPAM 15 MG CAP PO ONE (01:15)
[2019-09-24 05:27] LABS: Calcium 7.5 mg/dL (8.5-10.1); Potassium 3.5 mmol/L (3.5-5.1)
[2019-09-24 05:33] LABS: Albumin 2.1 g/dL (3.4-5.0); BUN/Creatinine Ratio 11.5; Bilirubin, Total 1.9 mg/dL (0.2-1.0); Total Protein 6.9 g/dL (6.4-8.2)
[2019-09-24 05:35] LABS: Basophils # (auto) 0.1 10 ^3/uL (0-0.2); Basophils % (auto) 0.3 % (0.0-2.0); Eosinophils # (auto) 0 10 ^3/uL (0-0.8); Eosinophils % (auto) 0.2 % (0.0-7.0); Hematocrit 29.3 % (36.0-46.0); Hemoglobin 9.5 g/dL (12.2-16.2); Lymphocytes # (auto) 1.5 10 ^3/uL (0.4-5.4); Lymphocytes % (auto) 8.3 % (10.0-50.0); Mean Corpuscular Hemoglobin 31.1 pg (28.0-32.0); Mean Corpuscular Hgb Conc. 32.4 g/dL (32.0-36.0); Mean Corpuscular Volume 95.8 fL (80.0-100.0); Neutrophils # (auto) 14.5 10 ^3/uL (1.6-8.6); Neutrophils % (auto) 80.2 % (37.0-80.0); Nucleated Red Blood Cells % 0.1 %; Platelet Count (auto) 288 10^3/uL (140-450); Red Blood Cells 3.06 10^6/uL (4.0-5.20); Red Cell Distribution Width 16.7 % (11.8-14.3)
[2019-09-24 05:52] VITALS: BP 126/71
[2019-09-24] MEDS: metroNIDAZOLE 500 MG TAB PO SCH ×3 (06:16→21:41)
[2019-09-24] MEDS: ACCU-CHEK COMFORT CURVE STRIP VI SCH ×3 (06:16→17:55)
[2019-09-24] MEDS: InsuLIN REG 1unit/0.01ml Soln (100units/ml) SC SCH ×3 (06:28→18:03)
--- NOTE | 2019-09-24 07:00 | NUR ---
65 ML OF BROWNISH GREEN FLUID DRAINED AT THIS TIME.
[2019-09-24 09:00] VITALS: BP 125/64
[2019-09-24] MEDS: levoFLOXacin 500MG 100 ML IV SCH (10:07)
[2019-09-24] MEDS: POTASSIUM CHL 20 Meq TABLET PO SCH (10:07)
[2019-09-24] MEDS: SODIUM CHLOR 0.9% PF (SALINE LOCK) 10ML VIAL/SYR IV SCH ×2 (10:07→21:44)
[2019-09-24] MEDS: FUROSEMIDE 40 MG TAB PO SCH (10:08)
[2019-09-24] MEDS: PANTOPRAZOLE 40 MG TAB PO SCH (10:08)
--- NOTE | 2019-09-24 10:42 | NUR ---
Nutrition Followup Note Wt 122.5 kg Pt awake and lying in bed. per RN note pt with no new signs of distress. Pt with adequate po intake aeb pt with 100% x2 on 09/21 and 09/23 per RN doc nutrition doc. Will continue to closely monitor pertinent labs, PO intake and skin status prn. Will followup in 3-5 days Est Energy needs ABW 86 [id number] kcals (17-20 kcal/kgBW), Est Protein needs: 86-94 gms/day (1.0-1.1 gm/kgBW) Will continue to monitor and reassess prn. Labs: GLUC 140H, Alb 2.1L, Ca 7.5L BM: pt with 3 BMs 09/23 and 300 ml gastric drainage per RN doc Skin: BS 22 low risk, full details in home care consultant doc. PES Decreased nutrient needs r.t adiposity aeb pt`s high BMI of 46.9 kgm2 Altered nutrition related lab values r/t current medical condition aeb elev creat a1c hypocalcemia Comments: 1) Continue to monitor po intake, labs, skin. 2) refer to CDE on DC. 3) Advance diet as medically feasible. 4) continue current plan of care
--- NOTE | 2019-09-24 12:28 | NUR ---
Drain 100ml out of CELSO
--- NOTE | 2019-09-24 12:28 | NUR ---
Dr Suggs at bedside.
[2019-09-24] MEDS ORDERED: POTASSIUM CHL 20 Meq TABLET PO ONE (12:30)
[2019-09-24 13:00] VITALS: BP 121/68
[2019-09-24 17:00] VITALS: BP 133/67
--- NOTE | 2019-09-24 18:00 | NUR ---
Drained 100ml out of CELSO drain
--- NOTE | 2019-09-24 19:20 | NUR ---
Opening Shift Note Assumed care of patient. Patient is awake, alert, and oriented X 4 sitting in a chair. No S/S of respiratory distress noted. Respirations are regular, non-labored. No pain, nausea, or vomiting reported. Pt is on 3 LPM NC. CELSO drain is intact and patient. Bed in lowest possible position, brakes locked, side rails up X 2, call light within reach. POC discussed with the patient. Patient instructed to call for assistance PRN. Will continue to monitor for changes Q1hr and PRN.
--- NOTE | 2019-09-24 19:55 | NUR ---
CELSO Drained 80ml out of CELSO drain
[2019-09-24] MEDS: HYDROcodone-ACET 5/325MG TAB PO PRN (21:41)
--- NOTE | 2019-09-24 21:50 | NUR ---
CELSO Drained 80ml out of CELSO drain
[2019-09-24 21:55] VITALS: BP 107/59
--- NOTE | 2019-09-24 23:35 | NUR ---
PICC Line Dressing Changes PICC line dressing change done with a sterile technique. Cleansed with ChloraPrep scrub. Stat lock and bio-patch changed. Occlusive dressing applied. Patient tolerated well.
[2019-09-25] MEDS: ACCU-CHEK COMFORT CURVE STRIP VI SCH ×4 (00:03→18:08)
[2019-09-25] MEDS: InsuLIN REG 1unit/0.01ml Soln (100units/ml) SC SCH ×4 (00:07→18:08)
--- NOTE | 2019-09-25 00:15 | NUR ---
CELSO Drained 100 ml out of CELSO drain
[2019-09-25 05:45] VITALS: BP 130/60
[2019-09-25] MEDS: metroNIDAZOLE 500 MG TAB PO SCH ×3 (05:53→22:19)
--- NOTE | 2019-09-25 06:59 | NUR ---
CELSO Drained 50 ml out of CELSO drain
[2019-09-25 07:29] LABS: Basophils # (auto) 0.1 10 ^3/uL (0-0.2); Basophils % (auto) 0.7 % (0.0-2.0); Eosinophils # (auto) 0.1 10 ^3/uL (0-0.8); Eosinophils % (auto) 0.7 % (0.0-7.0); Hematocrit 26.3 % (36.0-46.0); Hemoglobin 8.6 g/dL (12.2-16.2); Lymphocytes # (auto) 1.7 10 ^3/uL (0.4-5.4); Lymphocytes % (auto) 10.1 % (10.0-50.0); Mean Corpuscular Hemoglobin 31.4 pg (28.0-32.0); Mean Corpuscular Hgb Conc. 32.5 g/dL (32.0-36.0); Mean Corpuscular Volume 96.3 fL (80.0-100.0); Monocytes # (auto) 1.6 10 ^3/uL (0-1.3); Monocytes % (auto) 9.7 % (0.0-12.0); Neutrophils # (auto) 12.9 10 ^3/uL (1.6-8.6); Neutrophils % (auto) 78.8 % (37.0-80.0); Nucleated Red Blood Cells % 0.1 %; Platelet Count (auto) 359 10^3/uL (140-450); Red Blood Cells 2.73 10^6/uL (4.0-5.20); Red Cell Distribution Width 17.6 % (11.8-14.3); White Blood Cell 16.4 10^3/uL (4.4-10.8)
--- NOTE | 2019-09-25 07:30 | NUR ---
Opening Shift Note Assumed care of patient, awake and alert. No S/S of distress/SOB or pain. Instructed on POC and to call for assist PRN, will continue to monitor for changes Q1hr and PRN. Fall precautions in place per safety protocol.
[2019-09-25 07:37] LABS: Calcium 7.9 mg/dL (8.5-10.1); Potassium 3.7 mmol/L (3.5-5.1)
[2019-09-25 07:41] LABS: BUN/Creatinine Ratio 12.7; Bilirubin, Total 1.5 mg/dL (0.2-1.0); Total Protein 7.1 g/dL (6.4-8.2)
[2019-09-25 09:00] VITALS: BP 121/60
--- NOTE | 2019-09-25 10:00 | NUR ---
CELSO CELSO drain 125 ML.
[2019-09-25] MEDS: levoFLOXacin 500MG 100 ML IV SCH (10:23)
[2019-09-25] MEDS: PANTOPRAZOLE 40 MG TAB PO SCH (10:24)
[2019-09-25] MEDS: FUROSEMIDE 40 MG TAB PO SCH (10:24)
[2019-09-25] MEDS: SODIUM CHLOR 0.9% PF (SALINE LOCK) 10ML VIAL/SYR IV SCH ×2 (10:24→22:42)
[2019-09-25] MEDS: POTASSIUM CHL 20 Meq TABLET PO SCH (10:24)
[2019-09-25 12:42] VITALS: BP 139/66
--- NOTE | 2019-09-25 14:00 | NUR ---
CELSO CELSO Murguia 100ML out.
--- NOTE | 2019-09-25 15:30 | NUR ---
Hospitalist MD Joe at bedside, aware of patient status. No new orders received at this time. Will cont to monitor patient.
[2019-09-25 16:45] VITALS: BP 130/66
[2019-09-25] MEDS: Glucerna Carbsteady SHAKE Vanilla 8oz PO SCH (18:08)
--- NOTE | 2019-09-25 18:50 | NUR ---
CELSO [place] Drained 125ml.
--- NOTE | 2019-09-25 19:10 | NUR ---
Opening Shift Note Assumed care of patient. Patient is awake, alert, and oriented X 4 sitting in a chair. No S/S of respiratory distress noted. Respirations are regular, non-labored. No pain, nausea, or vomiting reported. Pt is on 3 LPM NC. CELSO drain is intact and patient. 80 ml of drainage emptied. Bed in lowest possible position, brakes locked, side rails up X 2, call light within reach. POC discussed with the patient. Patient instructed to call for assistance PRN. Will continue to monitor for changes Q1hr and PRN.
--- NOTE | 2019-09-25 19:15 | NUR ---
Endorsed care to night PARRIHS Concepcion. Addendum: 09/25/19 at 1924 by DANIEL ORDAZ RN RN RN. Cherelle
[2019-09-25 22:00] VITALS: BP 124/65
--- NOTE | 2019-09-25 22:45 | NUR ---
CELSO Drained 80 ml out of CELSO drain
[2019-09-26] MEDS: ACCU-CHEK COMFORT CURVE STRIP VI SCH ×4 (00:02→18:08)
[2019-09-26] MEDS: InsuLIN REG 1unit/0.01ml Soln (100units/ml) SC SCH ×4 (00:05→18:08)
--- NOTE | 2019-09-26 00:50 | NUR ---
CELSO Drained 100 ml out of CELSO drain
[2019-09-26 05:00] VITALS: BP 135/64
--- NOTE | 2019-09-26 05:20 | NUR ---
CELSO Drained 60 ml drainage out of CELSO drain
[2019-09-26] MEDS: metroNIDAZOLE 500 MG TAB PO SCH ×3 (05:56→21:39)
[2019-09-26 07:50] LABS: Basophils # (auto) 0.1 10 ^3/uL (0-0.2); Eosinophils # (auto) 0.1 10 ^3/uL (0-0.8); Eosinophils % (auto) 0.3 % (0.0-7.0); Lymphocytes # (auto) 1.4 10 ^3/uL (0.4-5.4); Nucleated Red Blood Cells % 0.1 %
[2019-09-26 07:53] LABS: Basophils % (auto) 0.5 % (0.0-2.0); Hematocrit 28.9 % (36.0-46.0); Hemoglobin 9.6 g/dL (12.2-16.2); Lymphocytes % (auto) 8.6 % (10.0-50.0); Mean Corpuscular Hemoglobin 31.9 pg (28.0-32.0); Mean Corpuscular Hgb Conc. 33.2 g/dL (32.0-36.0); Monocytes # (auto) 1.6 10 ^3/uL (0-1.3); Monocytes % (auto) 10.1 % (0.0-12.0); Neutrophils % (auto) 80.5 % (37.0-80.0); Platelet Count (auto) 477 10^3/uL (140-450); Red Blood Cells 3.01 10^6/uL (4.0-5.20); Red Cell Distribution Width 17.7 % (11.8-14.3); White Blood Cell 16.2 10^3/uL (4.4-10.8)
[2019-09-26] MEDS: Glucerna Carbsteady SHAKE Vanilla 8oz PO SCH ×3 (08:00→18:08)
[2019-09-26 08:10] LABS: Potassium 4.2 mmol/L (3.5-5.1)
[2019-09-26 08:23] LABS: BUN/Creatinine Ratio 8.8; Calcium 7.9 mg/dL (8.5-10.1)
[2019-09-26 09:00] VITALS: BP 135/65
[2019-09-26] MEDS: PANTOPRAZOLE 40 MG TAB PO SCH (10:47)
[2019-09-26] MEDS: FUROSEMIDE 40 MG TAB PO SCH (10:47)
[2019-09-26] MEDS: POTASSIUM CHL 20 Meq TABLET PO SCH (10:47)
[2019-09-26] MEDS: SODIUM CHLOR 0.9% PF (SALINE LOCK) 10ML VIAL/SYR IV SCH ×2 (10:48→22:24)
[2019-09-26] MEDS: levoFLOXacin 500MG 100 ML IV SCH (10:48)
[2019-09-26 13:00] VITALS: BP_SYST 126; BP_SYST 134; BP_DIAS 59; BP_DIAS 71
[2019-09-26 17:00] VITALS: BP 134/77
--- NOTE | 2019-09-26 18:09 | NUR ---
CELSO Drained 75 mls.
--- NOTE | 2019-09-26 19:17 | NUR ---
Opening Shift Note Assumed care of patient. Patient is awake, alert, and oriented X 4. No S/S of respiratory distress noted. Respirations are regular, non-labored. No pain, nausea, or vomiting reported. Pt is on 2 lpm NC. CELSO drain is intact and patient. PICC line asymptomatic. Bed in lowest possible position, brakes locked, side rails up X 2, call light within reach. POC discussed with the patient. Patient instructed to call for assistance PRN. Will continue to monitor for changes Q1hr and PRN.
--- NOTE | 2019-09-26 19:20 | NUR ---
Endorsed care to night PARRISH Villarreal.
[2019-09-26 22:00] VITALS: BP_SYST 136; BP_SYST 139; BP_DIAS 64; BP_DIAS 72
[2019-09-27] MEDS: ACCU-CHEK COMFORT CURVE STRIP VI SCH ×4 (00:14→17:49)
[2019-09-27] MEDS: InsuLIN REG 1unit/0.01ml Soln (100units/ml) SC SCH ×4 (00:30→17:49)
[2019-09-27 05:00] VITALS: BP 133/74
[2019-09-27 05:32] LABS: Basophils # (auto) 0.1 10 ^3/uL (0-0.2); Basophils % (auto) 0.7 % (0.0-2.0); Eosinophils # (auto) 0.1 10 ^3/uL (0-0.8); Eosinophils % (auto) 0.4 % (0.0-7.0); Hematocrit 30.1 % (36.0-46.0); Hemoglobin 9.7 g/dL (12.2-16.2); Lymphocytes # (auto) 1.7 10 ^3/uL (0.4-5.4); Lymphocytes % (auto) 10.4 % (10.0-50.0); Mean Corpuscular Hemoglobin 31.3 pg (28.0-32.0); Mean Corpuscular Hgb Conc. 32.2 g/dL (32.0-36.0); Mean Corpuscular Volume 97.2 fL (80.0-100.0); Monocytes # (auto) 1.8 10 ^3/uL (0-1.3); Monocytes % (auto) 11.1 % (0.0-12.0); Neutrophils # (auto) 12.4 10 ^3/uL (1.6-8.6); Neutrophils % (auto) 77.4 % (37.0-80.0); Nucleated Red Blood Cells % 0.1 %; Platelet Count (auto) 457 10^3/uL (140-450)
[2019-09-27 05:53] LABS: BUN/Creatinine Ratio 10.4; Calcium 7.5 mg/dL (8.5-10.1); Potassium 4.2 mmol/L (3.5-5.1)
[2019-09-27] MEDS: metroNIDAZOLE 500 MG TAB PO SCH ×2 (06:08→13:24)
--- NOTE | 2019-09-27 06:24 | NUR ---
CELSO Drained 15 mls.
[2019-09-27 08:00] VITALS: BP 136/72
[2019-09-27] MEDS: Glucerna Carbsteady SHAKE Vanilla 8oz PO SCH ×3 (08:00→17:49)
[2019-09-27] MEDS: FUROSEMIDE 40 MG TAB PO SCH (10:06)
[2019-09-27] MEDS: SODIUM CHLOR 0.9% PF (SALINE LOCK) 10ML VIAL/SYR IV SCH (10:06)
[2019-09-27] MEDS: levoFLOXacin 500MG 100 ML IV SCH (10:06)
[2019-09-27] MEDS: POTASSIUM CHL 20 Meq TABLET PO SCH (10:06)
[2019-09-27] MEDS: PANTOPRAZOLE 40 MG TAB PO SCH (10:07)
[2019-09-27 13:20] VITALS: BP 146/78
[2019-09-27 15:04] VITALS: BP 136/72
[2019-09-27 17:15] VITALS: BP 161/80
--- NOTE | 2019-09-27 18:09 | NUR ---
Discharge instructions given as ordered. Encourage to follow up with PMD as instructed. All f/a appts made, and patient taught how to empty CELSO drain by demonstration, patient verbalizes understanding. All questions and concerns addressed. Patient verbalized understanding. Medication reconciliation form completed and copy given to patient. Home medications held in Pharmacy returned to patient. Picc line removed with catheter intact, pressure dressing applied. Patient taken to vehicle via wheelchair with all personal belongings, accompanied by staff. No distress noted at time of departure.
== END 2019-09-27 18:00 | disposition home or self-care (01) | DRG 263 ==
LOC: ER 13:42 → TELE 13:43 → TELE-CENTR 21:40 → CENTRAL 09-10 11:24 → TELE-CENTR 09-14 17:18 → ICU WEST 09-16 16:35 → DOU IN ICU 09-18 15:35 → TELE-WESTW 09-19 09:11 → WEST WING 09-20 04:09
PROVIDERS: ADMIT Hospitalist; ATTEND Internal Medicine
PROC: 0F7 Hepatobiliary System and Pancreas, Dilation (ICD-10-PCS; 2019-09-14)
PROC: 0FCC8ZZ Extirpation of Matter from Ampulla of Vater, Via Natural or Artificial Opening Endoscopic (ICD-10-PCS; principal; 2019-09-14 15:03)
PROC: 5A1935Z Respiratory Ventilation, Less than 24 Consecutive Hours (ICD-10-PCS; 2019-09-15)
PROC: 0BH17EZ Insertion of Endotracheal Airway into Trachea, Via Natural or Artificial Opening (ICD-10-PCS; 2019-09-15)
PROC: 0FJ44ZZ Inspection of Gallbladder, Percutaneous Endoscopic Approach (ICD-10-PCS; 2019-09-15)
PROC: 0FT40ZZ Resection of Gallbladder, Open Approach (ICD-10-PCS; 2019-09-16)
PROC: 30233N1 Transfusion of Nonautologous Red Blood Cells into Peripheral Vein, Percutaneous Approach (ICD-10-PCS; 2019-09-16)
PROC: 02HV33Z Insertion of Infusion Device into Superior Vena Cava, Percutaneous Approach (ICD-10-PCS; 2019-09-16)
DX: K80.66 Calculus of gallbladder and bile duct with acute and chronic cholecystitis without obstruction (principal); I50.31 Acute diastolic (congestive) heart failure; J96.00 Acute respiratory failure, unspecified whether with hypoxia or hypercapnia; A41.9 Sepsis, unspecified organism; E44.0 Moderate protein-calorie malnutrition; E11.21 Type 2 diabetes mellitus with diabetic nephropathy; E66.01 Morbid (severe) obesity due to excess calories; N10 Acute pyelonephritis; K72.90 Hepatic failure, unspecified without coma; D25.9 Leiomyoma of uterus, unspecified; M19.90 Unspecified osteoarthritis, unspecified site; E78.5 Hyperlipidemia, unspecified; N39.0 Urinary tract infection, site not specified; D50.0 Iron deficiency anemia secondary to blood loss (chronic); E11.42 Type 2 diabetes mellitus with diabetic polyneuropathy; I11.0 Hypertensive heart disease with heart failure; D63.8 Anemia in other chronic diseases classified elsewhere; Z53.31 Laparoscopic surgical procedure converted to open procedure; Z68.41 Body mass index [BMI] 40.0-44.9, adult; Z79.899 Other long term (current) drug therapy
CPT/HCPCS: 36415; 36569; 36600; 71045; 74018; 74176; 74181; 76000; 76705; 78226; 80048; 80053; 80061; 80307; 81001; 82150; 82805; 82962; 83036; 83690; 83735; 84100; 84443; 84484; 85025; 85610; 85730; 86850; 86900; 86901; 86920; 87040; 87070; 87077; 87081; 87205; 93005; 94002; 94640; 94660; 94762; 96365; 96375; 97110; 97116; 97530; C9113; G0378; J0330; J0690; J0696; J1815; J1956; J2001; J2250; J2405; J2704; J3490; J7060

== ENCOUNTER 2019-10-28 17:55 | Inpatient (IN) | payer MEDICAID ==
[~2019-10-28] VITALS: Ht 160 cm; Wt 101.5 kg
[~2019-10-28 17:55] MED LIST: CHOL1TAB42 PO; GABA300C10 PO; IBUP600T27 PO; LISI-648 PO; METF-370 PO; NAP500T PO
[2019-10-28] MEDS ORDERED: ONDANSETRON HCL 4 MG/2 ML VIAL IV ONE (19:15)
[2019-10-28 22:58] LABS: Basophils # (auto) 0.1 10 ^3/uL (0-0.2); Basophils % (auto) 0.3 % (0.0-2.0); Eosinophils # (auto) 0 10 ^3/uL (0-0.8); Hematocrit 45.2 % (36.0-46.0); Hemoglobin 14.4 g/dL (12.2-16.2); Lymphocytes % (auto) 6.2 % (10.0-50.0); Mean Corpuscular Hemoglobin 31.9 pg (28.0-32.0); Mean Corpuscular Hgb Conc. 31.8 g/dL (32.0-36.0); Mean Corpuscular Volume 100.3 fL (80.0-100.0); Monocytes # (auto) 0.6 10 ^3/uL (0-1.3); Monocytes % (auto) 3.8 % (0.0-12.0); Neutrophils # (auto) 14.9 10 ^3/uL (1.6-8.6); Neutrophils % (auto) 89.7 % (37.0-80.0); Nucleated Red Blood Cells % 0.1 %; Platelet Count (auto) 405 10^3/uL (140-450); Red Blood Cells 4.51 10^6/uL (4.0-5.20); Red Cell Distribution Width 16.1 % (11.8-14.3); White Blood Cell 16.6 10^3/uL (4.4-10.8)
[2019-10-28 23:08] LABS: INR 1.12 (0.9-1.15)
[2019-10-28 23:14] LABS: Lactic Acid w/Reflex 3.4 mmol/L (0.4-2.0)
[2019-10-28] MEDS ORDERED: PIPERACILLIN-TAZOB 3.375GM 100 ML IV ONE (23:30)
[2019-10-28] MEDS ORDERED: SODIUM CHLORIDE 0.9% 3,350 ML IV ONE (23:30)
[2019-10-28] MEDS ORDERED: VANCOMYCIN 1GM/250ML 250 ML IV ONE (23:30)
[2019-10-28] MEDS ORDERED: LACTULOSE 20Gm/30ML SOLN PO ONE (23:45)
[2019-10-29 01:37] LABS: Chloride 91 mmol/L (98-107); Lipase 5245 U/L (73-393)
[2019-10-29 01:38] LABS: Alanine Aminotransferase 28 U/L (13-56); Albumin 3.8 g/dL (3.4-5.0); Alkaline Phosphatase 180 U/L (45-117); Amylase 277 U/L (25-115); Anion Gap 20 (5-15); Aspartate Aminotransferase 39 U/L (15-37); BUN/Creatinine Ratio 8.6; Bilirubin, Total 0.8 mg/dL (0.2-1.0); Calcium 9.9 mg/dL (8.5-10.1); GFR African American 2 mL/min; GFR Non-African American 2 mL/min; Glucose 201 mg/dL (74-106); Magnesium 3.4 mg/dL (1.6-2.6); Total Protein 11.5 g/dL (6.4-8.2)
[2019-10-29 01:42] LABS: Blood Urea Nitrogen 163 mg/dL (7-18); Carbon Dioxide 6 mmol/L (21-32); Sodium 117 mmol/L (136-145)
[2019-10-29] MEDS ORDERED: InsuLIN REG 1unit/0.01ml Soln (100units/ml) IV ONE (02:15)
[2019-10-29] MEDS ORDERED: SODIUM CHLORIDE 0.9% 1,000 ML IV ONE (02:15)
[2019-10-29] MEDS ORDERED: NITROGLYCERIN 0.4 MG SL TAB SL PRN (02:15)
[2019-10-29] MEDS ORDERED: MORPHINE SULFATE 4 MG/ML SYR/VIAL IV PRN (02:15)
[2019-10-29] MEDS ORDERED: SODIUM BICARBONATE 8.4 % INJ 50ML VIAL IV ONE (02:15)
[2019-10-29] MEDS ORDERED: VANCOMYCIN PER PHARMACY 0 MG IV SCH (02:15)
[2019-10-29] MEDS ORDERED: DEXTROSE (50%) 50ML SYRG IV ONE (02:15)
[2019-10-29] MEDS ORDERED: MORPHINE SULF INJ 2 MG/ML SYRINGE 1ML IV PRN (02:15)
[2019-10-29] MEDS ORDERED: SODIUM ZIRCONIUM CYCL 10 GM PAK PO ONE (02:15)
[2019-10-29] MEDS ORDERED: CALCIUM GLUC 4.65meq/50ml D5AE 50 ML IV ONE (02:15)
[2019-10-29] MEDS ORDERED: DEXTROSE (50%) 50ML SYRG IV PRN ×2 (02:15→12:15)
[2019-10-29] MEDS ORDERED: SODIUM BICARBONATE 8.4% INJ 50ML SYRINGE ONE (02:32)
[2019-10-29] MEDS ORDERED: SODIUM BICARBONATE 50ML VIAL 100 ML in SOD CHL 0.45% 1,000 ML IV SCH (02:45)
[2019-10-29] MEDS: PIPERACILLIN-TAZOB 2.25GM 50 ML IV SCH ×3 (06:00→22:00)
[2019-10-29] MEDS: SODIUM CHLORIDE 0.9% 1,000 ML IV SCH ×2 (06:30→17:26)
[2019-10-29] MEDS: ACCU-CHEK COMFORT CURVE STRIP VI SCH ×4 (06:59→23:58)
[2019-10-29] MEDS: InsuLIN REG 1unit/0.01ml Soln (100units/ml) SC SCH ×3 (06:59→20:00)
[2019-10-29] MEDS: metroNIDAZOLE 500MG/100ML 100 ML IV SCH ×3 (08:07→21:28)
[2019-10-29 09:38] LABS: Albumin 2.8 g/dL (3.4-5.0); Calcium 8.6 mg/dL (8.5-10.1); Potassium 5.1 mmol/L (3.5-5.1)
[2019-10-29 09:47] LABS: BUN/Creatinine Ratio 9.1; Bilirubin, Total 0.7 mg/dL (0.2-1.0)
[2019-10-29] MEDS ORDERED: SODIUM CHL 0.9% 1000 ML BAG XX ONE (12:45)
[2019-10-29] MEDS: SODIUM BICARBONATE 50ML VIAL 150 ML in D5W 5% 1,000 ML IV SCH (13:57)
[2019-10-29] MEDS ORDERED: InsuLIN REG 1unit/0.01ml Soln (100units/ml) SC SCH (17:00)
[2019-10-29] MEDS ORDERED: ACCU-CHEK COMFORT CURVE STRIP VI SCH (17:00)
[2019-10-30] MEDS: InsuLIN REG 1unit/0.01ml Soln (100units/ml) SC SCH ×4 (00:05→18:00)
[2019-10-30] MEDS: SODIUM CHLORIDE 0.9% 1,000 ML IV SCH ×3 (00:10→14:24)
[2019-10-30] MEDS: SODIUM BICARBONATE 50ML VIAL 150 ML in D5W 5% 1,000 ML IV SCH (00:10)
[2019-10-30] MEDS: metroNIDAZOLE 500MG/100ML 100 ML IV SCH ×3 (05:13→21:24)
[2019-10-30] MEDS: ACCU-CHEK COMFORT CURVE STRIP VI SCH ×3 (05:51→18:01)
[2019-10-30 06:32] LABS: Basophils # (auto) 0 10 ^3/uL (0-0.2); Basophils % (auto) 0.2 % (0.0-2.0); Eosinophils # (auto) 0 10 ^3/uL (0-0.8); Hematocrit 32.8 % (36.0-46.0); Hemoglobin 10.9 g/dL (12.2-16.2); Lymphocytes # (auto) 1.3 10 ^3/uL (0.4-5.4); Lymphocytes % (auto) 11.3 % (10.0-50.0); Mean Corpuscular Hemoglobin 31.3 pg (28.0-32.0); Mean Corpuscular Hgb Conc. 33.1 g/dL (32.0-36.0); Mean Corpuscular Volume 94.6 fL (80.0-100.0); Monocytes # (auto) 0.9 10 ^3/uL (0-1.3); Monocytes % (auto) 7.5 % (0.0-12.0); Neutrophils # (auto) 9.2 10 ^3/uL (1.6-8.6); Platelet Count (auto) 215 10^3/uL (140-450); Red Blood Cells 3.47 10^6/uL (4.0-5.20); White Blood Cell 11.4 10^3/uL (4.4-10.8)
[2019-10-30 06:51] LABS: Magnesium 2.2 mg/dL (1.6-2.6); Potassium 3.4 mmol/L (3.5-5.1)
[2019-10-30 06:58] LABS: Albumin 2.3 g/dL (3.4-5.0); BUN/Creatinine Ratio 8.1; Bilirubin, Total 0.5 mg/dL (0.2-1.0); Calcium 7.9 mg/dL (8.5-10.1); Total Protein 7.1 g/dL (6.4-8.2)
[2019-10-30] MEDS: PIPERACILLIN-TAZOB 2.25GM 50 ML IV SCH (07:28)
[2019-10-30 08:52] LABS: Urine Amorphous Crystal FEW /hpf (None Seen); Urine Bacteria NONE SEEN /hpf (None Seen); Urine Blood 2+ /uL (Negative); Urine Hyaline Cast MOD /lpf (0 - 2); Urine Mucus FEW (None Seen); Urine Specific Gravity 1.016 (1.001-1.035); Urine WBC 15 /hpf (0 - 5)
[2019-10-30] MEDS ORDERED: POTASSIUM CHL 20 Meq TABLET PO ONE (11:00)
--- NOTE | 2019-10-30 16:00 | NUR ---
Telemetry admit from MARY[facility] LALA admitted to Telemetry unit after SBAR received. Patient oriented to Cami Contreras, primary RN, unit, room, bed, and unit policies regarding patient care and visiting hours. Patient now on continuous telemetry monitoring, tele box # 66 and telemetry reading on arrival to unit is . Patient placed on bedside oxygen, weighed by bedscale and encouraged to call if they need something. All questions and concerns addressed, patient verbalized understanding. Note:
[2019-10-30 17:00] VITALS: BP 129/69
[2019-10-30] MEDS: ONDANSETRON HCL 4 MG/2 ML VIAL IV PRN (18:30)
--- NOTE | 2019-10-30 19:40 | NUR ---
Opening Shift Note Assumed patient care from Cami SENIOR. Patient is currently in resting in bed w/ eyes closed. Patient on 2L O2 nasal cannula w/ no s/s of distress or SOB. No pain noted. Patient bed locked in lowest position, HOB at 30 degrees, call light within reach. Will continue to monitor.
[2019-10-30 20:00] VITALS: BP 122/56
[2019-10-30 22:00] VITALS: BP 122/56
[2019-10-31] MEDS: ACCU-CHEK COMFORT CURVE STRIP VI SCH ×5 (00:09→23:44)
[2019-10-31] MEDS: SODIUM CHLORIDE 0.9% 1,000 ML IV SCH ×2 (03:05→16:06)
[2019-10-31 05:44] VITALS: BP 127/68
[2019-10-31] MEDS: InsuLIN REG 1unit/0.01ml Soln (100units/ml) SC SCH ×5 (06:00→23:44)
--- NOTE | 2019-10-31 06:00 | NUR ---
MRSA SWAB SENT TO LAB.
[2019-10-31] MEDS: metroNIDAZOLE 500MG/100ML 100 ML IV SCH ×3 (06:27→22:05)
--- NOTE | 2019-10-31 07:30 | NUR ---
RECEIVED REPORT FROM NIGHT NURSE. PATIENT RESTING IN BED, NO DISTRESS NOTED. WILL CONTINUE TO MONITOR.
[2019-10-31 09:00] VITALS: BP 135/63
--- NOTE | 2019-10-31 09:00 | NUR ---
CELSO DRAIN EMPTIED 90 ML OF DARK YELLOW/ BROWN FLUID.
[2019-10-31 10:03] LABS: BUN/Creatinine Ratio 6.4; Calcium 8.2 mg/dL (8.5-10.1); Potassium 3.3 mmol/L (3.5-5.1)
--- NOTE | 2019-10-31 10:58 | NUR ---
COVID SWAB COLLECTED AND TAKEN TO LAB.
[2019-10-31] MEDS ORDERED: CHOLESTYRAMINE 4 GM POWDER PO ONE (11:15)
[2019-10-31] MEDS ORDERED: POTASSIUM EFFERVESENT TAB 25 MEQ PO ONE (11:45)
[2019-10-31 11:53] LABS: Basophils # (auto) 0 10 ^3/uL (0-0.2); Basophils % (auto) 0.2 % (0.0-2.0); Eosinophils # (auto) 0 10 ^3/uL (0-0.8); Eosinophils % (auto) 0.2 % (0.0-7.0); Hematocrit 31.3 % (36.0-46.0); Hemoglobin 10.4 g/dL (12.2-16.2); Lymphocytes # (auto) 1.4 10 ^3/uL (0.4-5.4); Lymphocytes % (auto) 14.4 % (10.0-50.0); Mean Corpuscular Hemoglobin 31.9 pg (28.0-32.0); Mean Corpuscular Hgb Conc. 33.2 g/dL (32.0-36.0); Mean Corpuscular Volume 96.2 fL (80.0-100.0); Monocytes # (auto) 0.9 10 ^3/uL (0-1.3); Monocytes % (auto) 8.8 % (0.0-12.0); Neutrophils # (auto) 7.5 10 ^3/uL (1.6-8.6); Neutrophils % (auto) 76.4 % (37.0-80.0); Platelet Count (auto) 192 10^3/uL (140-450); Red Blood Cells 3.25 10^6/uL (4.0-5.20); Red Cell Distribution Width 15.2 % (11.8-14.3); White Blood Cell 9.8 10^3/uL (4.4-10.8)
--- NOTE | 2019-10-31 12:00 | NUR ---
CELSO DRAIN EMPTIED 50 ML OF DARK YELLOW/ BROWN FLUID.
[2019-10-31 13:00] VITALS: BP 132/67
--- NOTE | 2019-10-31 14:51 | NUR ---
Est energy needs 4727-4588 kcal (14-18 kcal/kg BW 100kg) est protein needs 100-120g (1-1.2g/kg BW 100kg r/t HD) will reassess prn Addendum: 10/31/19 at [address] Amended: Links added.
--- NOTE | 2019-10-31 15:08 | NUR ---
CELSO DRAIN EMPTIED 100 ML OF DARK YELLOW/ BROWN FLUID.
[2019-10-31 17:00] VITALS: BP 145/78
--- NOTE | 2019-10-31 18:00 | NUR ---
CELSO DRAIN EMPTIED 100 ML OF DARK YELLOW/ BROWN FLUID.
--- NOTE | 2019-10-31 19:35 | NUR ---
Opening Shift Note Assumed care of patient, awake and alert x4. No S/S of distress/SOB or acute pain. Call light within reach, HOB at 40 degrees, rails up x2. Bed locked in lowest position. Instructed on POC and to call for assist PRN, will continue to monitor for changes Q1hr and PRN.
[2019-10-31 20:00] VITALS: BP 156/75
--- NOTE | 2019-10-31 20:00 | NUR ---
CELSO Drain 75mls- serosanguineous
[2019-10-31] MEDS: CHOLESTYRAMINE 4 GM POWDER PO SCH (23:00)
--- NOTE | 2019-10-31 23:20 | NUR ---
Patient Refused Qyestran Powder Patient complained powder medication makes her stomach hurt too much, she does not want to take medication at this time. Patient educated on purpose for med, patient still refused.
--- NOTE | 2019-11-01 02:16 | NUR ---
CELSO DRAIN - 75 MLS - GOPI BROWN DRAINAGE NOTED
[2019-11-01] MEDS: SODIUM CHLORIDE 0.9% 1,000 ML IV SCH ×3 (05:15→23:00)
[2019-11-01] MEDS: metroNIDAZOLE 500MG/100ML 100 ML IV SCH (05:32)
[2019-11-01] MEDS: ACCU-CHEK COMFORT CURVE STRIP VI SCH ×3 (05:33→17:25)
[2019-11-01] MEDS: InsuLIN REG 1unit/0.01ml Soln (100units/ml) SC SCH ×3 (05:33→17:25)
[2019-11-01 05:34] VITALS: BP 155/79
[2019-11-01] MEDS: MORPHINE SULF INJ 2 MG/ML SYRINGE 1ML IV PRN ×2 (06:09→17:20)
[2019-11-01 06:34] LABS: Basophils # (auto) 0 10 ^3/uL (0-0.2); Basophils % (auto) 0.3 % (0.0-2.0); Eosinophils # (auto) 0.2 10 ^3/uL (0-0.8); Eosinophils % (auto) 1.6 % (0.0-7.0); Hematocrit 33.3 % (36.0-46.0); Hemoglobin 10.5 g/dL (12.2-16.2); Lymphocytes # (auto) 1.4 10 ^3/uL (0.4-5.4); Lymphocytes % (auto) 15.7 % (10.0-50.0); Mean Corpuscular Hemoglobin 31.2 pg (28.0-32.0); Mean Corpuscular Hgb Conc. 31.6 g/dL (32.0-36.0); Mean Corpuscular Volume 98.7 fL (80.0-100.0); Monocytes # (auto) 0.6 10 ^3/uL (0-1.3); Monocytes % (auto) 6.8 % (0.0-12.0); Neutrophils % (auto) 75.6 % (37.0-80.0); Nucleated Red Blood Cells % 0.1 %; Platelet Count (auto) 175 10^3/uL (140-450); Red Blood Cells 3.38 10^6/uL (4.0-5.20); Red Cell Distribution Width 15.3 % (11.8-14.3); White Blood Cell 9.2 10^3/uL (4.4-10.8)
[2019-11-01 07:05] LABS: Potassium 3.4 mmol/L (3.5-5.1)
[2019-11-01 07:12] LABS: BUN/Creatinine Ratio 7.7; Calcium 8.1 mg/dL (8.5-10.1)
--- NOTE | 2019-11-01 07:30 | NUR ---
Opening Shift Note Assumed care of patient, awake and alert. No S/S of distress/SOB or pain. Instructed on POC and to call for assist PRN, will continue to monitor for changes Q1hr and PRN. Bed is locked and in lowest position. Call light within reach.
[2019-11-01 08:00] VITALS: BP 137/64
--- NOTE | 2019-11-01 08:40 | NUR ---
CELSO DRAINING, REMOVED 50 CC DARK RUST COLOR. WILL CONTINUE TO MONITOR. DRESSING REINFORCED WITH 4X4 GAUZE, TEGADERM, AND TAPE. CELSO DRAIN SUTURES IN PLACE, SURROUNDING TISSUE IS PINK WITH NO SIGNS OF INFECTION, SITE CLEANED AND PAT DRY. WILL CONTINUE TO MONITOR.
[2019-11-01 09:09] VITALS: BP 137/64
--- NOTE | 2019-11-01 09:43 | NUR ---
PATIENT OFF UNIT FOR HIDA SCAN. PATIENT TRANSPORTED IN WHEELCHAIR.
--- NOTE | 2019-11-01 10:46 | NUR ---
CELSO DRAINING, REMOVED 70 CC DARK RUST COLOR. WILL CONTINUE TO MONITOR.
[2019-11-01] MEDS: CHOLESTYRAMINE 4 GM POWDER PO SCH (11:00)
[2019-11-01] MEDS: ONDANSETRON HCL 4 MG/2 ML VIAL IV PRN (11:15)
[2019-11-01 12:33] VITALS: BP 139/67
[2019-11-01 12:41] LABS: Hepatitis A Ab IgM Negative
[2019-11-01 12:42] LABS: Hepatitis B Core IgM Negative; Hepatitis B Surface Antigen Negative (Negative); Hepatitis C Antibody Negative (Negative)
[2019-11-01] MEDS ORDERED: PIPERACILLIN-TAZOB 2.25GM 50 ML IV ONE (13:00)
[2019-11-01] MEDS ORDERED: PANTOPRAZOLE 40 MG/10 ML VIAL INJ IV ONE (13:00)
--- NOTE | 2019-11-01 14:30 | NUR ---
CELSO DRAINING, REMOVED 90 CC DARK RUST COLOR. WILL CONTINUE TO MONITOR.
--- NOTE | 2019-11-01 15:40 | NUR ---
PHONE CALL RECEIVED FROM [employer] REGARDING RUN OF VTACH AT 1540. PATIENT WAS SLEEPING, PATIENT DENIED ANY CHEST PAIN OR DISTRESS OR SOB. DR GUERRA. WILL CONTINUE TO MONITOR.
[2019-11-01 16:54] VITALS: BP 119/63
[2019-11-01] MEDS ORDERED: POTASSIUM CHL 20 Meq TABLET PO ONE (17:00)
[2019-11-01] MEDS ORDERED: POTASSIUM EFFERVESENT TAB 25 MEQ PO ONE (17:15)
[2019-11-01] MEDS ORDERED: PIPERACILLIN-TAZOB 2.25GM 50 ML IV SCH (18:00)
[2019-11-01] MEDS ORDERED: POTASSIUM CHL 20MEQ/100ML 100 ML IV ONE (18:00)
[2019-11-01] MEDS: PIPERACILLIN-TAZOB 2.25GM 50 ML IV SCH (21:55)
[2019-11-01 22:00] VITALS: BP 106/64
[2019-11-02] MEDS: ACCU-CHEK COMFORT CURVE STRIP VI SCH ×4 (00:16→23:58)
[2019-11-02] MEDS: InsuLIN REG 1unit/0.01ml Soln (100units/ml) SC SCH ×3 (00:28→11:37)
[2019-11-02 05:03] VITALS: BP 128/70
[2019-11-02] MEDS: PIPERACILLIN-TAZOB 2.25GM 50 ML IV SCH ×3 (06:02→22:03)
--- NOTE | 2019-11-02 06:34 | NUR ---
0630 Pt off unit, taken down in bed to pre-op. Pt left stable and comfortably in bed.
[2019-11-02] MEDS ORDERED: SUCCINYLCHOLINE CHLORIDE 20 MG/ML 10ML VIAL IV ONE (06:52)
[2019-11-02] MEDS ORDERED: LIDOCAINE 1% HCL (LOCAL ANESTH.) INJ 20ML MDV ONE (06:52)
[2019-11-02] MEDS ORDERED: PROPOFOL 10 MG/ML 20 ML IV ONE (06:55)
[2019-11-02] MEDS ORDERED: MIDAZOLAM HCL 1MG/1ML-2 ML VIAL ONE (06:55)
[2019-11-02] MEDS ORDERED: ONDANSETRON HCL 4 MG/2 ML VIAL ONE ×2 (06:55→10:42)
[2019-11-02] MEDS ORDERED: SODIUM CHLORIDE LOCK 10 ML ONE (06:55)
[2019-11-02] MEDS ORDERED: MEPERIDINE HCL (25 MG/ML) 1ML VIAL ONE (06:55)
[2019-11-02] MEDS ORDERED: fentaNYL CITRATE 100 MCG/2 ML VL ONE (06:55)
[2019-11-02] MEDS ORDERED: KETAMINE HCL 10 ML ONE (06:57)
[2019-11-02 07:13] LABS: Basophils # (auto) 0 10 ^3/uL (0-0.2); Basophils % (auto) 0.2 % (0.0-2.0); Eosinophils # (auto) 0 10 ^3/uL (0-0.8); Eosinophils % (auto) 0.5 % (0.0-7.0); Hematocrit 33.9 % (36.0-46.0); Hemoglobin 10.8 g/dL (12.2-16.2); Lymphocytes # (auto) 1.1 10 ^3/uL (0.4-5.4); Lymphocytes % (auto) 11.9 % (10.0-50.0); Mean Corpuscular Hemoglobin 31.7 pg (28.0-32.0); Mean Corpuscular Hgb Conc. 31.9 g/dL (32.0-36.0); Mean Corpuscular Volume 99.5 fL (80.0-100.0); Monocytes # (auto) 0.7 10 ^3/uL (0-1.3); Neutrophils # (auto) 7.6 10 ^3/uL (1.6-8.6); Neutrophils % (auto) 80.4 % (37.0-80.0); Platelet Count (auto) 178 10^3/uL (140-450); Red Blood Cells 3.41 10^6/uL (4.0-5.20); Red Cell Distribution Width 15.4 % (11.8-14.3); White Blood Cell 9.4 10^3/uL (4.4-10.8)
[2019-11-02] MEDS ORDERED: IOHEXOL 300 MG/ML 100ML BOTTLE IJ ONE (07:17)
[2019-11-02 07:29] LABS: INR 1.42 (0.9-1.15)
--- NOTE | 2019-11-02 07:30 | NUR ---
Opening Shift Note ASSUMED CARE OF PATIENT WHO IS IN PRE-OP FOR ERCP PROCEDURE WITH DR. CREWS. WILL AWAIT PATIENT RETURN.
[2019-11-02 07:31] LABS: Albumin 2.5 g/dL (3.4-5.0); Calcium 8.5 mg/dL (8.5-10.1); Potassium 4.1 mmol/L (3.5-5.1)
[2019-11-02 07:33] LABS: BUN/Creatinine Ratio 10.3
[2019-11-02 07:36] LABS: Bilirubin, Total 0.5 mg/dL (0.2-1.0); Total Protein 7.4 g/dL (6.4-8.2)
[2019-11-02] MEDS ORDERED: NEOSTIGMINE 1 MG/ML INJ (10mg/10ML VIAL) ONE (08:46)
[2019-11-02] MEDS ORDERED: GLYCOPYRROLATE 0.2 MG/ML 1ML VIAL ONE (08:46)
[2019-11-02] MEDS ORDERED: ACCU-CHEK COMFORT CURVE STRIP VI ONE (09:45)
[2019-11-02] MEDS ORDERED: MORPHINE SULFATE 4 MG/ML SYR/VIAL IV PRN (09:45)
[2019-11-02] MEDS ORDERED: HYDROmorphone HCL 2 MG/ML VL IV PRN (09:45)
[2019-11-02] MEDS ORDERED: METOCLOPRAMIDE HCL 5MG/ml INJ 2ml VIAL IV PRN ×2 (09:45→12:30)
[2019-11-02] MEDS: PANTOPRAZOLE 40 MG/10 ML VIAL INJ IV SCH (11:21)
--- NOTE | 2019-11-02 12:00 | NUR ---
80 ML FROM CELSO DRAIN RUST COLOR. WILL CONTINUE TO MONITOR.
[2019-11-02] MEDS ORDERED: TPN PER PHARMACY 0 ML IV SCH (12:30)
[2019-11-02 12:55] VITALS: BP 135/92
[2019-11-02 12:58] LABS: Phosphorus 4.4 mg/dL (2.5-4.90)
--- NOTE | 2019-11-02 14:04 | NUR ---
90 ML OUTPUT FROM ECLSO DRAIN RUSTIC COLOR. WILL CONTINUE TO MONITOR.
[2019-11-02] MEDS: SODIUM CHLORIDE 0.9% 1,000 ML IV SCH ×2 (14:15→19:00)
--- NOTE | 2019-11-02 15:00 | NUR ---
DR. KEMP AT BEDSIDE DISCUSSED WITH PATIENT ERCP FINDINGS AND POC. DR. KEMP AWARE OF PATIENTS URINE OUTPUT. WILL CARRY OUT NEW ORDERS. WILL CONTINUE TO MONITOR PATIENT.
--- NOTE | 2019-11-02 15:34 | NUR ---
Nutrition Followup Note Wt 101.3kg Pt was not in room at time of rounds. Pt was off the floor for surgery. Pt is currently NPO with TPN ordered at 44 ml/hr which provides 1150 kcal and 50g protein. This provides 64-82% of energy needs and 42-50% of protein needs. Per MD note pt with HD on hold d/t renal improving, RFTs still elevated, adjust protein needs if no HD Est energy needs 2028-2033 kcal (14-18 kcal/kg BW 100kg) est protein needs 60-75g (0.6-0.75g/kg BW 100kg r/t elevated RFTs) will reassess prn Protein needs with dialysis (1-1.2g/kgBW) 100-120g Labs: BUN 42H, Creat 4.07H, Alb 2.5L, GLUC 139H BM: pt with 1 BM 8/4 per RN note Skin: Bs 18 mod risk, full details in health care coach note. PES: Obesity r/t caloric intake in excess of needs aeb pt with a BMI of 39.1 kg/m2 Altered nutrition related labs r/t current and chronic medical condition aeb pt with elevated RFTs, hypoalb Comments 1) Continue to monitor NPO status, labs, skin 2) refer pt to [facility] on Dc 3) Continue current plan of care Expected Outcomes/Goals: 1) Continue to advance TPN to meet >75% of needs 2) advance diet as medically feasible 3) f/u 2-3 days
[2019-11-02 16:31] VITALS: BP 131/82
[2019-11-02] MEDS ORDERED: DEXTROSE (50%) 50ML SYRG IV SCH (18:00)
--- NOTE | 2019-11-02 19:40 | NUR ---
Opening Shift Note Assumed care of patient, awake and alert. No S/S of distress/SOB or pain. Instructed on POC, with postal service mail processor and questions answered. Bed is locked in lowest position with side rails up x2 for safety. Call light is within reach and patient encouraged to call for as needed. CELSO dressing is dry and intact, will continue to monitor for changes Q1hr and PRN.
[2019-11-02] MEDS ORDERED: TPN PER PHARMACY IV NR ×7 (20:00)
--- NOTE | 2019-11-02 21:02 | NUR ---
CELSO DRAIN 50 CC OF BROWN FLUID REMOVED FROM CELSO DRAIN. PATIENT TOLERATED WELL. WILL CONTINUE TO MONITOR
[2019-11-02 22:00] VITALS: BP 129/76
[2019-11-02] MEDS: MORPHINE SULF INJ 2 MG/ML SYRINGE 1ML IV PRN (22:04)
--- NOTE | 2019-11-03 | NUR ---
CELSO DRAIN 55CC OF BROWN FLUID REMOVED FROM CELSO DRAIN. PATIENT TOLERATED WELL, WILL CONTINUE TO MONITOR.
[2019-11-03] MEDS: InsuLIN REG 1unit/0.01ml Soln (100units/ml) SC SCH ×4 (00:03→18:03)
[2019-11-03 05:00] VITALS: BP 140/88
[2019-11-03] MEDS: SODIUM CHLORIDE 0.9% 1,000 ML IV SCH ×2 (05:20→17:33)
--- NOTE | 2019-11-03 05:21 | NUR ---
CELSO DRAIN 100CC OF BROWN FLUID REMOVED FROM CELSO DRAIN.
[2019-11-03] MEDS: PIPERACILLIN-TAZOB 2.25GM 50 ML IV SCH ×3 (05:45→22:36)
[2019-11-03] MEDS: ACCU-CHEK COMFORT CURVE STRIP VI SCH ×3 (05:46→18:04)
[2019-11-03 06:40] LABS: Basophils # (auto) 0 10 ^3/uL (0-0.2); Basophils % (auto) 0.3 % (0.0-2.0); Eosinophils # (auto) 0.3 10 ^3/uL (0-0.8); Eosinophils % (auto) 3.7 % (0.0-7.0); Hemoglobin 10.4 g/dL (12.2-16.2); Lymphocytes # (auto) 1.6 10 ^3/uL (0.4-5.4); Lymphocytes % (auto) 17.7 % (10.0-50.0); Mean Corpuscular Hemoglobin 31.7 pg (28.0-32.0); Mean Corpuscular Hgb Conc. 31.6 g/dL (32.0-36.0); Mean Corpuscular Volume 100.1 fL (80.0-100.0); Monocytes # (auto) 0.6 10 ^3/uL (0-1.3); Monocytes % (auto) 6.3 % (0.0-12.0); Neutrophils # (auto) 6.7 10 ^3/uL (1.6-8.6); Nucleated Red Blood Cells % 0.1 %; Platelet Count (auto) 147 10^3/uL (140-450); Red Cell Distribution Width 15.4 % (11.8-14.3); White Blood Cell 9.3 10^3/uL (4.4-10.8)
[2019-11-03 06:54] LABS: INR 1.4 (0.9-1.15); Partial Thromboplastin Time 24.3 sec (23.0-31.2)
[2019-11-03 06:58] LABS: Albumin 2.3 g/dL (3.4-5.0); Calcium 7.5 mg/dL (8.5-10.1); Magnesium 1.6 mg/dL (1.6-2.6); Potassium 3.6 mmol/L (3.5-5.1)
[2019-11-03 07:02] LABS: Bilirubin, Total 0.4 mg/dL (0.2-1.0); Phosphorus 2.2 mg/dL (2.5-4.90); Total Protein 6.8 g/dL (6.4-8.2)
[2019-11-03 08:00] VITALS: BP 153/86
--- NOTE | 2019-11-03 08:30 | NUR ---
90 CC REMOVED FROM CELSO DRAIN. DARK RUST COLOR. WILL CONTINUE TO MONITOR.
[2019-11-03 09:01] VITALS: BP 153/86
--- NOTE | 2019-11-03 09:13 | NUR ---
PATIENT OFF UNIT FOR PROCEDURE WITH DR. BLANCA. CONSENTS SIGNED BY PATIENT. PATIENT TOLERATED TRANSPORT IN [facility] WITH NO SINGS OF DISTRESS OR PAIN. PATIENT TPN STOPPED PER RECREATION FACILITY ATTENDANT PARRISH BENNETT. WILL AWAIT PATIENT RETURN.
[2019-11-03] MEDS ORDERED: LIDOCAINE 2%HCL (LOCAL ANESTH.) INJ 20ML MDV ONE ×4 (09:26→11:28)
[2019-11-03] MEDS ORDERED: IOHEXOL 350 MG/ML 100ML IJ ONE (09:26)
[2019-11-03] MEDS ORDERED: MIDAZOLAM HCL 1MG/1ML-2 ML VIAL ONE (09:39)
[2019-11-03] MEDS ORDERED: fentaNYL CITRATE 100 MCG/2 ML VL ONE ×2 (09:39→11:08)
[2019-11-03] MEDS ORDERED: POTASSIUM PHOSP 22MEQ(15MMOLE) in NS 100 ML IV ONE ×3 (11:00→20:00)
[2019-11-03] MEDS ORDERED: diphenhdrAMINE HCL 50 MG/1 ML VL ONE (11:05)
[2019-11-03] MEDS ORDERED: HYDROmorphone HCL 2 MG/ML VL ONE ×2 (11:09→12:15)
--- NOTE | 2019-11-03 15:13 | NUR ---
Nutrition Followup Note Wt 105.8 kg Pt was not in room at time of rounds. Pt was off the floor for surgery. Pt is currently NPO with TPN ordered at 44 ml/hr which provides 1150 kcal and 50g protein. This provides 64-82% of energy needs and 42-50% of protein needs. pt last HD 10/29. Est energy needs 7943-2803 kcal (14-18 kcal/kg BW 100kg) est protein needs 60-75g (0.6-0.75g/kg BW 100kg r/t elevated RFTs) will reassess prn Protein needs with dialysis (1-1.2g/kgBW) 100-120g Labs: GLU 168 H CA 7.5 L ALB 2.3 L BUN 38 H CREAT 2.93 H BM: pt with 1 BM today per RN note Skin: Bs 18 mod risk, full details in career development engineer note. PES: Obesity r/t caloric intake in excess of needs aeb pt with a BMI of 39.1 kg/m2 Altered nutrition related labs r/t current and chronic medical condition aeb pt with elevated RFTs, hypoalb Comments: Continue to monitor NPO status, PN tolerance, labs, skin status. F/u high 2-3 days Rec: 1) Continue to advance TPN to meet >75% of needs 2) advance diet as medically feasible 3) continue current plan of care
[2019-11-03 17:00] VITALS: BP 109/64
[2019-11-03] MEDS: PANTOPRAZOLE 40 MG/10 ML VIAL INJ IV SCH (17:33)
[2019-11-03 20:00] VITALS: BP 99/59
[2019-11-03] MEDS ORDERED: TPN PER PHARMACY IV NR ×10 (20:00)
[2019-11-03 22:00] VITALS: BP 99/59
[2019-11-04] MEDS: InsuLIN REG 1unit/0.01ml Soln (100units/ml) SC SCH ×4 (01:21→16:47)
[2019-11-04 05:21] VITALS: BP 121/66
[2019-11-04 05:52] LABS: Basophils # (auto) 0 10 ^3/uL (0-0.2); Basophils % (auto) 0.2 % (0.0-2.0); Eosinophils # (auto) 0 10 ^3/uL (0-0.8); Eosinophils % (auto) 0.1 % (0.0-7.0); Hematocrit 29.9 % (36.0-46.0); Hemoglobin 9.5 g/dL (12.2-16.2); Lymphocytes # (auto) 0.8 10 ^3/uL (0.4-5.4); Lymphocytes % (auto) 4.3 % (10.0-50.0); Mean Corpuscular Hemoglobin 31.5 pg (28.0-32.0); Mean Corpuscular Hgb Conc. 31.9 g/dL (32.0-36.0); Mean Corpuscular Volume 98.8 fL (80.0-100.0); Monocytes # (auto) 0.9 10 ^3/uL (0-1.3); Monocytes % (auto) 4.9 % (0.0-12.0); Neutrophils # (auto) 16.4 10 ^3/uL (1.6-8.6); Neutrophils % (auto) 90.5 % (37.0-80.0); Nucleated Red Blood Cells % 0.1 %; Platelet Count (auto) 110 10^3/uL (140-450); Red Blood Cells 3.02 10^6/uL (4.0-5.20); Red Cell Distribution Width 15.5 % (11.8-14.3); White Blood Cell 18.1 10^3/uL (4.4-10.8)
[2019-11-04] MEDS: ACCU-CHEK COMFORT CURVE STRIP VI SCH ×4 (06:07→16:47)
[2019-11-04] MEDS: SODIUM CHLORIDE 0.9% 1,000 ML IV SCH ×2 (06:07→07:45)
[2019-11-04] MEDS: PIPERACILLIN-TAZOB 2.25GM 50 ML IV SCH ×3 (06:07→22:01)
[2019-11-04 06:16] LABS: Potassium 3.9 mmol/L (3.5-5.1)
--- NOTE | 2019-11-04 07:00 | NUR ---
110 CC REMOVED FROM CELSO DRAIN. DARK BROWN RUST COLOR. WILL CONTINUE TO MONITOR.
--- NOTE | 2019-11-04 07:20 | NUR ---
Opening Shift Note Assumed care of patient, awake and alert. No S/S of distress/SOB or pain. Insructed on POC and to callfor assist PRN, will continue to monitor for changes Q1hr and PRN.
[2019-11-04 07:57] LABS: Albumin 2.1 g/dL (3.4-5.0); BUN/Creatinine Ratio 15.7; Bilirubin, Total 0.7 mg/dL (0.2-1.0); Magnesium 1.4 mg/dL (1.6-2.6); Total Protein 6.3 g/dL (6.4-8.2)
[2019-11-04 08:25] VITALS: BP 99/59
[2019-11-04 09:00] VITALS: BP 116/63
[2019-11-04] MEDS: PANTOPRAZOLE 40 MG/10 ML VIAL INJ IV SCH (09:31)
[2019-11-04] MEDS: MAGNESIUM SULFATE 1GM/100ML 100 ML IV SCH ×2 (10:00→11:00)
[2019-11-04 13:00] VITALS: BP 133/68
[2019-11-04 17:00] VITALS: BP 137/77
--- NOTE | 2019-11-04 17:37 | NUR ---
60 cc fluid removed from CELSO drain puch drain 0 output this shift
[2019-11-04] MEDS ORDERED: TPN PER PHARMACY IV NR ×10 (20:00)
[2019-11-04 22:00] VITALS: BP 104/86
[2019-11-05] MEDS: ACCU-CHEK COMFORT CURVE STRIP VI SCH ×4 (00:57→18:18)
[2019-11-05 05:00] VITALS: BP 158/89
[2019-11-05] MEDS: SODIUM CHLORIDE 0.9% 1,000 ML IV SCH ×2 (05:41→18:20)
[2019-11-05] MEDS: PIPERACILLIN-TAZOB 2.25GM 50 ML IV SCH (05:41)
[2019-11-05] MEDS: InsuLIN REG 1unit/0.01ml Soln (100units/ml) SC SCH ×4 (06:26→18:00)
[2019-11-05 07:18] LABS: Basophils # (auto) 0 10 ^3/uL (0-0.2); Basophils % (auto) 0.1 % (0.0-2.0); Eosinophils # (auto) 0.4 10 ^3/uL (0-0.8); Eosinophils % (auto) 2.8 % (0.0-7.0); Hematocrit 29.8 % (36.0-46.0); Hemoglobin 9.5 g/dL (12.2-16.2); Lymphocytes % (auto) 7.6 % (10.0-50.0); Mean Corpuscular Hemoglobin 31.6 pg (28.0-32.0); Mean Corpuscular Hgb Conc. 31.9 g/dL (32.0-36.0); Mean Corpuscular Volume 98.9 fL (80.0-100.0); Monocytes # (auto) 0.6 10 ^3/uL (0-1.3); Monocytes % (auto) 4.7 % (0.0-12.0); Neutrophils # (auto) 10.9 10 ^3/uL (1.6-8.6); Neutrophils % (auto) 84.8 % (37.0-80.0); Platelet Count (auto) 112 10^3/uL (140-450); Red Blood Cells 3.01 10^6/uL (4.0-5.20); Red Cell Distribution Width 15.6 % (11.8-14.3); White Blood Cell 12.9 10^3/uL (4.4-10.8)
[2019-11-05 07:34] LABS: Albumin 2.1 g/dL (3.4-5.0); Calcium 7.2 mg/dL (8.5-10.1); Magnesium 1.7 mg/dL (1.6-2.6); Potassium 3.3 mmol/L (3.5-5.1)
[2019-11-05 07:38] LABS: Bilirubin, Total 0.4 mg/dL (0.2-1.0); Phosphorus 2.6 mg/dL (2.5-4.90); Total Protein 6.4 g/dL (6.4-8.2)
[2019-11-05 07:46] LABS: BUN/Creatinine Ratio 21.3
[2019-11-05 09:00] VITALS: BP 147/81
[2019-11-05] MEDS ORDERED: POTASSIUM PHOSP 22MEQ(15MMOLE) in NS 100 ML IV ONE (09:30)
[2019-11-05] MEDS: PANTOPRAZOLE 40 MG/10 ML VIAL INJ IV SCH (09:30)
[2019-11-05] MEDS ORDERED: PIPERACILLIN-TAZOB 2.25GM 50 ML IV SCH (12:00)
[2019-11-05] MEDS ORDERED: traMADol HCL 50 MG TAB PO PRN (13:00)
[2019-11-05] MEDS ORDERED: POTASSIUM CHL 20 Meq TABLET PO ONE (13:00)
--- NOTE | 2019-11-05 13:00 | NUR ---
JESENIA CATHETER REMOVED BY DR. KEMP, DRESSING APPLIED, WILL CONTIUE TO MONITOR.
--- NOTE | 2019-11-05 13:55 | NUR ---
assessment Patient is a 54 year old female who is Romansh speaking and alert an oriented. Stephanie translated for us. Prior to admission patient lived home with family and functioned with assistance. Patient has a cane for home use. Patient will return home with family on discharge and will have transport home. Patient informed me her family helps her with anything she may need. Patient may benefit from a home health for safety order on discharge. I will continue to monitor and follow up as appropriate. Patient verbalized understanding and agreed to discharge plan home. Addendum: 11/05/19 at 1400 by Elly MEANS Amended: Links added.
--- NOTE | 2019-11-05 16:26 | NUR ---
Nutrition Followup Note Wt 107.6 kg Pt was sleeping at time of rounds. Pt is with a Full Liquid diet, appetite is good aeb 100% PO intake over 3 meals per RN doc. Pt is also with TPN ordered at 52 ml/hr which provides 1360 kcal and 60g protein. PN provides 76-97% of est energy needs and 80-100% of est protein needs. No HD noted. Will continue to monitor PO status, skin status, pertinent labs and weight trends. Will f/u in 2-3 days. Est energy needs 7015-0475 kcal (14-18 kcal/kg BW 100kg) est protein needs 60-75g (0.6-0.75g/kg BW 100kg r/t elevated RFTs) will reassess prn Protein needs with dialysis (1-1.2g/kgBW) 100-120g Labs: GLU 110 H CA 7.2 L ALB 2.1 L BUN 27 H CREAT 1.27 H BM: pt with 1 BM on 11/01 per RN note Skin: Bs 18 mod risk, full details in daycare director note. PES: Obesity r/t caloric intake in excess of needs aeb pt with a BMI of 39.1 kg/m2 Altered nutrition related labs r/t current and chronic medical condition aeb pt with elevated RFTs, hypoalb Comments: Continue to monitor NPO status, PN tolerance, labs, skin status. F/u high 2-3 days Rec: 1) Continue to advance TPN to meet >75% of needs 2) advance diet as medically feasible 3) continue current plan of care
[2019-11-05 17:00] VITALS: BP 156/91
[2019-11-05] MEDS: PIPERACILLIN-TAZOB 3.375GM 100 ML IV SCH (18:18)
--- NOTE | 2019-11-05 19:26 | NUR ---
DRAIN CELSO 450MLS TOTAL OUTPUT PERCUTANEOUS DRAIN NO OUTPUT
[2019-11-05] MEDS ORDERED: TPN PER PHARMACY IV NR ×10 (20:00)
[2019-11-05 23:15] VITALS: BP 161/88
[2019-11-06] MEDS: PIPERACILLIN-TAZOB 3.375GM 100 ML IV SCH ×5 (01:17→23:31)
[2019-11-06 05:38] VITALS: BP 151/75
[2019-11-06 06:17] LABS: Basophils # (auto) 0 10 ^3/uL (0-0.2); Basophils % (auto) 0.3 % (0.0-2.0); Eosinophils # (auto) 0.2 10 ^3/uL (0-0.8); Eosinophils % (auto) 3.2 % (0.0-7.0); Hematocrit 31.9 % (36.0-46.0); Hemoglobin 10.2 g/dL (12.2-16.2); Lymphocytes # (auto) 0.7 10 ^3/uL (0.4-5.4); Lymphocytes % (auto) 9.2 % (10.0-50.0); Mean Corpuscular Hemoglobin 31.6 pg (28.0-32.0); Mean Corpuscular Hgb Conc. 32.1 g/dL (32.0-36.0); Mean Corpuscular Volume 98.3 fL (80.0-100.0); Monocytes # (auto) 0.3 10 ^3/uL (0-1.3); Monocytes % (auto) 3.3 % (0.0-12.0); Neutrophils # (auto) 6.6 10 ^3/uL (1.6-8.6); Nucleated Red Blood Cells % 0.1 %; Platelet Count (auto) 134 10^3/uL (140-450); Red Blood Cells 3.24 10^6/uL (4.0-5.20); Red Cell Distribution Width 15.5 % (11.8-14.3); White Blood Cell 7.8 10^3/uL (4.4-10.8)
[2019-11-06 06:34] LABS: Potassium 3.6 mmol/L (3.5-5.1)
[2019-11-06 06:39] LABS: BUN/Creatinine Ratio 16.8; Calcium 7.2 mg/dL (8.5-10.1)
[2019-11-06 09:00] VITALS: BP 150/72
[2019-11-06] MEDS: PANTOPRAZOLE 40 MG TAB PO SCH (09:37)
[2019-11-06] MEDS: LOPERAMIDE HCL 2 MG CAP PO PRN ×2 (10:40→12:10)
[2019-11-06 13:00] VITALS: BP_SYST 137; BP_SYST 95; BP_DIAS 64; BP_DIAS 70
[2019-11-06 17:00] VITALS: BP 109/69
--- NOTE | 2019-11-06 18:47 | NUR ---
DRAIN CELSO DRAIN OUTPUT 315MLS PERCUTANEOUS DRAIN NO OUTPUT.
[2019-11-06] MEDS: SODIUM CHLORIDE 0.9% 1,000 ML IV SCH (19:45)
--- NOTE | 2019-11-06 19:45 | NUR ---
assumed care, pt. awake, venezuelan speak only, repositioned pt. no c/o pain, no sob.
[2019-11-06 22:00] VITALS: BP 133/85
[2019-11-07 05:00] VITALS: BP 164/89
[2019-11-07] MEDS: PIPERACILLIN-TAZOB 3.375GM 100 ML IV SCH ×4 (05:38→23:30)
--- NOTE | 2019-11-07 06:07 | NUR ---
CELSO- 75ml Biliary drain- no output.
--- NOTE | 2019-11-07 07:30 | NUR ---
RECEIVED REPORT FROM NIGHT NURSE. PATIENT RESTING IN BED, NO DISTRESS NOTED. WILL CONTINUE TO MONITOR.
[2019-11-07 09:00] VITALS: BP 133/73
[2019-11-07] MEDS: PANTOPRAZOLE 40 MG TAB PO SCH (10:03)
[2019-11-07 13:00] VITALS: BP 112/68
--- NOTE | 2019-11-07 14:33 | NUR ---
Nutrition Followup Note Wt 107.3 kg Pt was sleeping at time of rounds. TPN DC and Pt diet advanced to CCHO 60g 11/04. Pt with fair po intake since diet advanced aeb pt with an avg po intake of 63% x 3 days per RN note. Est energy needs 4853-7998 kcal (14-18 kcal/kg BW 100kg) est protein needs 60-75g (0.6-0.75g/kg BW 100kg r/t elevated RFTs) will reassess prn Protein needs with dialysis (1-1.2g/kgBW) 100-120g Labs: Ca 7.2L, Alb 2.1L BM: pt with 5 BMs on 11/06 per RN note Skin: Bs 18 mod risk, full details in health and social care teacher note. PES: Obesity r/t caloric intake in excess of needs aeb pt with a BMI of 39.1 kg/m2 Altered nutrition related labs r/t current and chronic medical condition aeb pt with elevated RFTs, hypoalb Comments: Continue to monitor po intake, labs, skin status. F/u mod 3-5 days Rec: 1)Continue diet with po intake >75% 2) continue current plan of care
[2019-11-07] MEDS: SODIUM CHLORIDE 0.9% 1,000 ML IV SCH ×2 (15:42→22:13)
--- NOTE | 2019-11-07 18:30 | NUR ---
CELSO DRAIN DRAINED 15ML OF YELLOW/ GREEN FLUID.
--- NOTE | 2019-11-07 18:30 | NUR ---
PERCUTANEOUS DRAIN DRAINED 15ML OF DARK RED/ BROWN FLUID.
--- NOTE | 2019-11-07 19:45 | NUR ---
assumed care, pt. awake, no c/o pain, no sob.
[2019-11-07 22:17] VITALS: BP 152/81
[2019-11-08 05:00] VITALS: BP 126/69
[2019-11-08 05:15] LABS: Basophils # (auto) 0 10 ^3/uL (0-0.2); Basophils % (auto) 0.2 % (0.0-2.0); Eosinophils # (auto) 0.1 10 ^3/uL (0-0.8); Eosinophils % (auto) 1.3 % (0.0-7.0); Hemoglobin 11.3 g/dL (12.2-16.2); Lymphocytes # (auto) 0.5 10 ^3/uL (0.4-5.4); Lymphocytes % (auto) 6.4 % (10.0-50.0); Mean Corpuscular Hemoglobin 31.4 pg (28.0-32.0); Mean Corpuscular Hgb Conc. 31.3 g/dL (32.0-36.0); Mean Corpuscular Volume 100.4 fL (80.0-100.0); Monocytes # (auto) 0.2 10 ^3/uL (0-1.3); Monocytes % (auto) 2.5 % (0.0-12.0); Neutrophils # (auto) 7.4 10 ^3/uL (1.6-8.6); Neutrophils % (auto) 89.6 % (37.0-80.0); Platelet Count (auto) 143 10^3/uL (140-450); Red Blood Cells 3.59 10^6/uL (4.0-5.20); Red Cell Distribution Width 16.1 % (11.8-14.3); White Blood Cell 8.2 10^3/uL (4.4-10.8)
[2019-11-08 05:37] LABS: Calcium 6.5 mg/dL (8.5-10.1); Magnesium 1.2 mg/dL (1.6-2.6); Potassium 3.6 mmol/L (3.5-5.1)
[2019-11-08 05:41] LABS: BUN/Creatinine Ratio 7.8
[2019-11-08] MEDS: PIPERACILLIN-TAZOB 3.375GM 100 ML IV SCH ×4 (05:45→23:54)
--- NOTE | 2019-11-08 06:00 | NUR ---
CELSO- 120 Percutaneous biliary drain- no output.
--- NOTE | 2019-11-08 07:30 | NUR ---
RECEIVED REPORT FROM NIGHT NURSE. PATIENT RESTING IN BED, NO DISTRESS NOTED. WILL CONTINUE TO MONITOR.
[2019-11-08 09:00] VITALS: BP 120/66
[2019-11-08] MEDS: PANTOPRAZOLE 40 MG TAB PO SCH (09:53)
--- NOTE | 2019-11-08 10:00 | NUR ---
CELSO DRAIN EMPTIED 50ML OF GREEN/YELLOW FLUID.
--- NOTE | 2019-11-08 11:40 | NUR ---
DR. KEMP AT BEDSIDE.
--- NOTE | 2019-11-08 11:42 | NUR ---
CELSO DRAIN EMPTIED 100ML OF GREEN/ YELLOW FLUID.
[2019-11-08 13:00] VITALS: BP 131/69
[2019-11-08] MEDS ORDERED: GASTROGRAFIN 30 ML SOL ONE (14:18)
[2019-11-08] MEDS ORDERED: IOHEXOL 300 MG/ML 100ML BOTTLE IJ ONE (14:49)
--- NOTE | 2019-11-08 15:00 | NUR ---
Fair catheter dc'd Order to discontinue Fair catheter. Fair dc'd with clean technique following deflation of balloon. Patient tolerated well with no complaints of pain. Continue care.
--- NOTE | 2019-11-08 16:01 | NUR ---
CELSO DRAIN EMPTIED 90 ML OF YELLOW/ BROWN FLUID.
[2019-11-08 17:00] VITALS: BP 142/73
--- NOTE | 2019-11-08 18:05 | NUR ---
PATIENT ASSISTED TO THE COMMODE. PATIENT URINATED.
--- NOTE | 2019-11-08 18:10 | NUR ---
CELSO DRAIN EMPTIED 80 ML OF YELLOW/ BROWN FLUID.
--- NOTE | 2019-11-08 18:25 | NUR ---
PERCUTANEOUS DRAIN NO DRAINAGE NOTED.
--- NOTE | 2019-11-08 18:42 | NUR ---
CELSO DRAIN TOTAL EMPTIED A TOTAL OF 320ML FROM CELSO DRAIN. GREEN/YELLOW FLUID THAT TURNED TO BROWN/YELLOW THROUGHOUT THE DAY
--- NOTE | 2019-11-08 19:35 | NUR ---
Opening Shift Note Assumed care of patient, awake and alert x4. No S/S of distress/SOB or pain. Dressings to abdomen are C/D/I. CELSO drain and percutaneous drain are patent and free of kinks. Call light is within reach. Instructed on POC and to call for assist PRN, will continue to monitor for changes Q1hr and PRN.
--- NOTE | 2019-11-08 20:00 | NUR ---
55cc of yellowish green fluid emptied from amanda drain.
--- NOTE | 2019-11-08 21:25 | NUR ---
70cc of yellowish green fluid emptied from amanda drain.
[2019-11-08 22:52] VITALS: BP 139/89
--- NOTE | 2019-11-09 00:12 | NUR ---
90cc of yellowish green fluid emptied from amanda drain.
--- NOTE | 2019-11-09 02:24 | NUR ---
95 cc of yellowish green fluid emptied from amanda drain.
--- NOTE | 2019-11-09 04:39 | NUR ---
90cc of yellowish green fluid emptied from amanda drain. 5 cc of dark reddish brown fluid emptied from percutaneous drain
[2019-11-09 05:43] VITALS: BP 142/75
[2019-11-09] MEDS: PIPERACILLIN-TAZOB 3.375GM 100 ML IV SCH ×3 (05:55→20:28)
--- NOTE | 2019-11-09 06:52 | NUR ---
95 cc of yellowish green fluid emptied from amanda drain.
--- NOTE | 2019-11-09 07:32 | NUR ---
NOC SHIFT DRAINAGE OUTPUT TOTAL CELSO DRAINAGE OUTPUT: 495 CC OF YELLOWISH GREEN FLUID. TOTAL PERCUTANEOUS BILIARY DRAIN: 5 CC OF REDDISH BROWN FLUID.
--- NOTE | 2019-11-09 08:00 | NUR ---
Opening Shift Note Assumed care of patient, awake, alert and oriented X4. No S/S of distress/SOB or pain. Tele #[id number], sinus rhythm @ 72 bpm. Right lateral neck triple lumen IJ with 0.9% NS @ 50 ml/hr to the blue port. Right upper abdomen percutaneous intraductal drainage tube with no drainage noted, right lower abdominal CELSO drain with 50 ml's of bilious drainage drained. Instructed on POC and to call for assist PRN, verbalized understanding. Bed locked, in lowest position, call light within reach, will continue to monitor for changes Q1hr and PRN.
[2019-11-09 09:00] VITALS: BP 139/66
--- NOTE | 2019-11-09 09:15 | NUR ---
CELSO 50 ml of yellow, bilious drainage out.
[2019-11-09] MEDS: PANTOPRAZOLE 40 MG TAB PO SCH (10:38)
[2019-11-09 12:00] VITALS: BP 116/73
--- NOTE | 2019-11-09 12:00 | NUR ---
ROUNDS Dr Stover at bedside for rounds, new orders received and followed through. Patient updated on plan of care, verbalized understanding. Translation on Vietnamese provided by PARRISH Law.
[2019-11-09] MEDS ORDERED: MAGNESIUM SULFATE 1GM/100ML 200 ML IV ONE (16:51)
[2019-11-09 17:00] VITALS: BP 119/93
[2019-11-09] MEDS: MAGNESIUM SULFATE 1GM/100ML 100 ML IV SCH ×2 (17:03→18:54)
--- NOTE | 2019-11-09 18:45 | NUR ---
CELSO 585 ml greenish yellow biliary output
--- NOTE | 2019-11-09 20:23 | NUR ---
Care endorsed to PARRISH Estrella, night nurse.
[2019-11-09] MEDS: SODIUM CHLORIDE 0.9% 1,000 ML IV SCH (20:28)
[2019-11-09 22:31] VITALS: BP 150/89
[2019-11-10] MEDS: PIPERACILLIN-TAZOB 3.375GM 100 ML IV SCH ×4 (00:46→18:51)
[2019-11-10] MEDS: SODIUM CHLORIDE 0.9% 1,000 ML IV SCH (03:45)
[2019-11-10 05:00] VITALS: BP 121/65
[2019-11-10 05:50] LABS: Basophils # (auto) 0 10 ^3/uL (0-0.2); Basophils % (auto) 0.5 % (0.0-2.0); Eosinophils # (auto) 0.2 10 ^3/uL (0-0.8); Eosinophils % (auto) 4.2 % (0.0-7.0); Hematocrit 32.8 % (36.0-46.0); Hemoglobin 10.5 g/dL (12.2-16.2); Lymphocytes % (auto) 21.4 % (10.0-50.0); Mean Corpuscular Hemoglobin 31.5 pg (28.0-32.0); Mean Corpuscular Hgb Conc. 32.1 g/dL (32.0-36.0); Mean Corpuscular Volume 98.2 fL (80.0-100.0); Monocytes # (auto) 0.6 10 ^3/uL (0-1.3); Monocytes % (auto) 12.4 % (0.0-12.0); Neutrophils # (auto) 2.8 10 ^3/uL (1.6-8.6); Neutrophils % (auto) 61.5 % (37.0-80.0); Platelet Count (auto) 195 10^3/uL (140-450); Red Blood Cells 3.34 10^6/uL (4.0-5.20); Red Cell Distribution Width 15.5 % (11.8-14.3); White Blood Cell 4.6 10^3/uL (4.4-10.8)
[2019-11-10 06:10] LABS: Albumin 2.4 g/dL (3.4-5.0); Calcium 6.3 mg/dL (8.5-10.1); Magnesium 1.9 mg/dL (1.6-2.6); Potassium 3.1 mmol/L (3.5-5.1)
[2019-11-10 06:15] LABS: BUN/Creatinine Ratio 5.3; Bilirubin, Total 0.5 mg/dL (0.2-1.0); Total Protein 6.7 g/dL (6.4-8.2)
[2019-11-10 09:00] VITALS: BP 134/75
[2019-11-10] MEDS: PANTOPRAZOLE 40 MG TAB PO SCH (09:33)
[2019-11-10] MEDS ORDERED: CATHFLO ACTIVASE (ALTEPLASE) 2 MG VIAL IV ONE (11:00)
[2019-11-10 12:10] LABS: INR 1.38 (0.9-1.15)
[2019-11-10 12:22] LABS: Urine Bacteria FEW /hpf (None Seen); Urine Blood 2+ /uL (Negative); Urine Specific Gravity 1.029 (1.001-1.035); Urine WBC 9 /hpf (0 - 5)
[2019-11-10 13:00] VITALS: BP 122/71
[2019-11-10] MEDS: POTASSIUM CHL 20MEQ/100ML 100 ML IV SCH ×2 (13:33→18:50)
[2019-11-10] MEDS ORDERED: IOHEXOL 300 MG/ML 100ML BOTTLE IJ ONE (14:27)
[2019-11-10] MEDS ORDERED: MIDAZOLAM HCL 1MG/1ML-2 ML VIAL ONE (14:33)
[2019-11-10] MEDS ORDERED: ONDANSETRON HCL 4 MG/2 ML VIAL ONE (14:33)
[2019-11-10] MEDS ORDERED: ROCURONIUM 10MG/ML 10ML VIAL IV ONE (14:33)
[2019-11-10] MEDS ORDERED: PROPOFOL 10 MG/ML 20 ML IV ONE (14:33)
[2019-11-10] MEDS ORDERED: SODIUM CHLORIDE LOCK 10 ML ONE (14:33)
[2019-11-10] MEDS ORDERED: fentaNYL CITRATE 100 MCG/2 ML VL ONE (14:33)
[2019-11-10] MEDS ORDERED: MORPHINE SULFATE 4 MG/ML SYR/VIAL IV PRN (14:45)
[2019-11-10] MEDS ORDERED: HYDROmorphone HCL 2 MG/ML VL IV PRN (14:45)
[2019-11-10] MEDS ORDERED: METOCLOPRAMIDE HCL 5MG/ml INJ 2ml VIAL IV PRN (14:45)
--- NOTE | 2019-11-10 14:49 | NUR ---
D/C planning Regarding social service consult for home health drain management. Faxed clinical information to [facility]. Per Staci with [facility] patient has been accepted and service to start within 24-48hrs. obtain authorization from [facility] [id number].
--- NOTE | 2019-11-10 14:53 | NUR ---
TOOK PATIENT DOWN TO PRE OP FOR ERCP WITH DR. QIU. ELIOT SENIOR TOOK CARE OF PATIENT AT THIS TIME.
[2019-11-10] MEDS ORDERED: fentaNYL CITRATE 100 MCG/2 ML VL IV ONE (15:25)
--- NOTE | 2019-11-10 16:01 | NUR ---
Nutrition Followup Note Wt 103.2 kg Pt was sleeping at time of rounds. Pt is currently NPO d/t scheduled medical procedure. Prior to NPO status, pt was with a CCHO 60g diet, appetite was fair aeb ave 54% PO intake over 2 days per RN doc. Will continue to monitor PO status, skin status, pertinent labs and weight trends. Will f/u in 3-5 days. Est energy needs 2839-4983 kcal (14-18 kcal/kg BW 100kg) est protein needs 60-75g (0.6-0.75g/kg BW 100kg r/t elevated RFTs) will reassess prn Protein needs with dialysis (1-1.2g/kgBW) 100-120g Labs: Ca 6.3L, Alb 2.4L BM: Pt with 1 BM on 11/08 per RN note Skin: Bs 22 low risk, full details in hourly caregiver note. PES: 1) Obesity r/t caloric intake in excess of needs aeb pt with a BMI of 39.1 kg/m2 2) Altered nutrition related labs r/t current and chronic medical condition aeb pt with elevated RFTs, hypoalb Comments: Continue to monitor po intake, labs, skin status. F/u mod 3-5 days Rec: 1)Continue diet with po intake >75% 2) continue current plan of care
--- NOTE | 2019-11-10 17:00 | NUR ---
Patient off unit for 1700 vitals.-EW
[2019-11-10] MEDS ORDERED: POTASSIUM CHL 20MEQ/100ML 100 ML IV ONE (18:48)
--- NOTE | 2019-11-10 19:42 | NUR ---
EMPTIED 450 ML OF GREEN BILE FROM CELSO DRAIN FOR DAY SHIFT
[2019-11-10 22:00] VITALS: BP 135/82
[2019-11-11] MEDS: PIPERACILLIN-TAZOB 3.375GM 100 ML IV SCH ×3 (00:05→11:50)
[2019-11-11 05:00] VITALS: BP 129/73
[2019-11-11] MEDS: SODIUM CHLORIDE 0.9% 1,000 ML IV SCH (05:58)
[2019-11-11 06:07] LABS: Basophils # (auto) 0 10 ^3/uL (0-0.2); Eosinophils # (auto) 0.2 10 ^3/uL (0-0.8); Eosinophils % (auto) 4.8 % (0.0-7.0); Hematocrit 33.2 % (36.0-46.0); Hemoglobin 10.4 g/dL (12.2-16.2); Lymphocytes # (auto) 0.9 10 ^3/uL (0.4-5.4); Lymphocytes % (auto) 21.8 % (10.0-50.0); Mean Corpuscular Hgb Conc. 31.4 g/dL (32.0-36.0); Mean Corpuscular Volume 98.7 fL (80.0-100.0); Monocytes # (auto) 0.4 10 ^3/uL (0-1.3); Monocytes % (auto) 11.1 % (0.0-12.0); Neutrophils # (auto) 2.4 10 ^3/uL (1.6-8.6); Neutrophils % (auto) 61.3 % (37.0-80.0); Platelet Count (auto) 222 10^3/uL (140-450); Red Blood Cells 3.37 10^6/uL (4.0-5.20); Red Cell Distribution Width 15.9 % (11.8-14.3)
[2019-11-11 06:23] LABS: Albumin 2.3 g/dL (3.4-5.0); Calcium 7.1 mg/dL (8.5-10.1); Potassium 3.5 mmol/L (3.5-5.1)
[2019-11-11 06:27] LABS: BUN/Creatinine Ratio 2.6; Bilirubin, Total 0.5 mg/dL (0.2-1.0); Total Protein 6.4 g/dL (6.4-8.2)
--- NOTE | 2019-11-11 08:00 | NUR ---
Received pt resting sitting on side of the bed, rt abdomen CELSO drain draining clear green fluid, CELSO dressing change, percutaneous drain with no drainage fluid noticed at this time, dressing clean and dry, call light within reach, will continue to monitor pt.
--- NOTE | 2019-11-11 08:50 | NUR ---
Pt ambulating around the station, no distress noticed at this time.
[2019-11-11 09:09] VITALS: BP 122/68
[2019-11-11] MEDS: PANTOPRAZOLE 40 MG TAB PO SCH (09:43)
--- NOTE | 2019-11-11 12:15 | NUR ---
Dr. Stover at bed side to see pt, doctor discussed plan of care with pt, doctor also discussed plan of care with Dr. Allen / radiology.
--- NOTE | 2019-11-11 12:20 | NUR ---
Dr. Allen at bed side to remove the percutaneous drain (pig tail drain), drain removed, cleaned with normal saline, covered with a sterile gauze, and secure with clear tegaderm dressing.
[2019-11-11] MEDS ORDERED: levoFLOXacin 500 MG TAB PO ONE (12:30)
[2019-11-11 13:00] VITALS: BP 151/88
[2019-11-11] MEDS: metroNIDAZOLE 500 MG TAB PO SCH ×2 (13:20→22:21)
[2019-11-11 16:37] VITALS: BP 141/74
[2019-11-11 22:00] VITALS: BP 131/83
[2019-11-12] MEDS: SODIUM CHLORIDE 0.9% 1,000 ML IV SCH ×2 (00:27→15:45)
[2019-11-12 05:00] VITALS: BP 148/81
[2019-11-12] MEDS: metroNIDAZOLE 500 MG TAB PO SCH ×2 (06:15→15:01)
[2019-11-12 06:44] LABS: Basophils # (auto) 0 10 ^3/uL (0-0.2); Basophils % (auto) 1.3 % (0.0-2.0); Eosinophils # (auto) 0.2 10 ^3/uL (0-0.8); Eosinophils % (auto) 4.8 % (0.0-7.0); Hematocrit 33.1 % (36.0-46.0); Hemoglobin 10.4 g/dL (12.2-16.2); Lymphocytes % (auto) 29.7 % (10.0-50.0); Mean Corpuscular Hemoglobin 31.4 pg (28.0-32.0); Mean Corpuscular Hgb Conc. 31.5 g/dL (32.0-36.0); Mean Corpuscular Volume 99.7 fL (80.0-100.0); Monocytes # (auto) 0.6 10 ^3/uL (0-1.3); Monocytes % (auto) 17.7 % (0.0-12.0); Neutrophils # (auto) 1.6 10 ^3/uL (1.6-8.6); Neutrophils % (auto) 46.5 % (37.0-80.0); Nucleated Red Blood Cells % 0.1 %; Platelet Count (auto) 247 10^3/uL (140-450); Red Blood Cells 3.32 10^6/uL (4.0-5.20); Red Cell Distribution Width 16.5 % (11.8-14.3); White Blood Cell 3.4 10^3/uL (4.4-10.8)
[2019-11-12 07:05] LABS: Albumin 2.4 g/dL (3.4-5.0); Calcium 7.7 mg/dL (8.5-10.1); Potassium 3.4 mmol/L (3.5-5.1)
[2019-11-12 07:08] LABS: Bilirubin, Total 0.4 mg/dL (0.2-1.0); Total Protein 6.5 g/dL (6.4-8.2)
--- NOTE | 2019-11-12 07:40 | NUR ---
PATIENT ROUNDS PATIENT AMBULATING TO RESTROOM, NO DISTRESS NOTED, GAIT STEADY. BED IN LOWEST POSITION, SIDE RAILS UP X2, CALL LIGHT WITHIN REACH. WILL CONTINUE TO MONITOR.
[2019-11-12 08:00] VITALS: BP 169/114
[2019-11-12 09:00] VITALS: BP 161/107
[2019-11-12] MEDS: PANTOPRAZOLE 40 MG TAB PO SCH (09:19)
[2019-11-12] MEDS ORDERED: levoFLOXacin 500 MG TAB PO SCH (10:00)
[2019-11-12] MEDS ORDERED: POTASSIUM CHL 20 Meq TABLET PO ONE (11:45)
--- NOTE | 2019-11-12 12:03 | NUR ---
MD ROUNDS DR KEMP IN TO SEE PATIENT, PLAN FOR DISCHARGE TODAY, RESUME HH. TRANSPORTATION PER PATIENT AFTER 17:00.
--- NOTE | 2019-11-12 12:25 | NUR ---
IV removal IV DC'd with clean sterile technique, catheter fully intact. Pressure dressing applied to site. Patient tolerated well. NOTE:
[2019-11-12 13:00] VITALS: BP 157/107
--- NOTE | 2019-11-12 15:18 | NUR ---
TELE CLEANED AND RETURNED TO DIETETIC AIDE.
--- NOTE | 2019-11-12 17:57 | NUR ---
Discharge instructions given as ordered. Encourage to follow up with PMD as instructed. All questions and concerns addressed. Patient verbalized understanding. Medication reconciliation form completed and copy given to patient. IV removed with catheter intact, pressure dressing applied. Telemetry unit returned to ICU. Patient taken to vehicle via wheelchair with all personal belongings, accompanied by staff member. No distress noted at time of departure.
== END 2019-11-12 17:57 | disposition home health service (06) | DRG 720 ==
LOC: ER 17:55 → TELE 17:56 → TELE-WESTW 10-30 15:55
PROVIDERS: ADMIT Nurse Practitioner; ATTEND Internal Medicine
PROC: 5A1D70Z Performance of Urinary Filtration, Intermittent, Less than 6 Hours Per Day (ICD-10-PCS; 2019-10-29)
PROC: 02H633Z Insertion of Infusion Device into Right Atrium, Percutaneous Approach (ICD-10-PCS; 2019-10-29)
PROC: B548ZZA Ultrasonography of Superior Vena Cava, Guidance (ICD-10-PCS; 2019-10-29)
PROC: 5A1D70Z Performance of Urinary Filtration, Intermittent, Less than 6 Hours Per Day (ICD-10-PCS; 2019-10-30)
PROC: BF101ZZ Fluoroscopy of Bile Ducts using Low Osmolar Contrast (ICD-10-PCS; 2019-11-02)
PROC: 3E0436Z Introduction of Nutritional Substance into Central Vein, Percutaneous Approach (ICD-10-PCS; 2019-11-02)
PROC: 0FPB8DZ Removal of Intraluminal Device from Hepatobiliary Duct, Via Natural or Artificial Opening Endoscopic (ICD-10-PCS; principal; 2019-11-02 07:44)
PROC: 0F9730Z Drainage of Common Hepatic Duct with Drainage Device, Percutaneous Approach (ICD-10-PCS; 2019-11-03)
PROC: 0F793DZ Dilation of Common Bile Duct with Intraluminal Device, Percutaneous Approach (ICD-10-PCS; 2019-11-03)
PROC: 0FPB8DZ Removal of Intraluminal Device from Hepatobiliary Duct, Via Natural or Artificial Opening Endoscopic (ICD-10-PCS; 2019-11-10)
PROC: 0F798DZ Dilation of Common Bile Duct with Intraluminal Device, Via Natural or Artificial Opening Endoscopic (ICD-10-PCS; 2019-11-10)
PROC: 0FC98ZZ Extirpation of Matter from Common Bile Duct, Via Natural or Artificial Opening Endoscopic (ICD-10-PCS; 2019-11-10)
PROC: BF101ZZ Fluoroscopy of Bile Ducts using Low Osmolar Contrast (ICD-10-PCS; 2019-11-10)
DX: A41.9 Sepsis, unspecified organism (principal); E87.5 Hyperkalemia; E11.9 Type 2 diabetes mellitus without complications; E66.01 Morbid (severe) obesity due to excess calories; E87.1 Hypo-osmolality and hyponatremia; N17.0 Acute kidney failure with tubular necrosis; E78.5 Hyperlipidemia, unspecified; S36.13XA Injury of bile duct, initial encounter; I50.9 Heart failure, unspecified; I11.0 Hypertensive heart disease with heart failure; X58.XXXA Exposure to other specified factors, initial encounter; Z83.3 Family history of diabetes mellitus; Z90.49 Acquired absence of other specified parts of digestive tract; Z99.2 Dependence on renal dialysis; Z82.49 Family history of ischemic heart disease and other diseases of the circulatory system; Y93.89 Activity, other specified; Y92.89 Other specified places as the place of occurrence of the external cause; Y99.8 Other external cause status; K91.89 Other postprocedural complications and disorders of digestive system; Y83.8 Other surgical procedures as the cause of abnormal reaction of the patient, or of later complication, without mention of misadventure at the time of the procedure; Z20.828 Contact with and (suspected) exposure to other viral communicable diseases; K80.30 Calculus of bile duct with cholangitis, unspecified, without obstruction; Z53.8 Procedure and treatment not carried out for other reasons; K85.90 Acute pancreatitis without necrosis or infection, unspecified; Z68.41 Body mass index [BMI] 40.0-44.9, adult
CPT/HCPCS: 36415; 36600; 71045; 74018; 74176; 74328; 76000; 76705; 76775; 78226; 80048; 80053; 80074; 81001; 82040; 82140; 82150; 82270; 82805; 82962; 83540; 83550; 83605; 83690; 83735; 83880; 84100; 84295; 84478; 84484; 85025; 85379; 85610; 85730; 86850; 86900; 86901; 87040; 87081; 87086; 87493; 90935; 93005; 93970; 99152; 99153; A4565; C1729; C1781; C2625; C9113; G0378; J0330; J0610; J1642; J1815; J2001; J2250; J2405; J2543; J2704; J3480; J3490